=== PATIENT | female | born 1950 | race Caucasian/White ===

== ENCOUNTER → 2017-01-01 | Outpatient (CLI) | payer MEDICARE ==
[2017-01-01 09:44] LABS: Blood Urea Nitrogen 14 mg/dL (7-17); Non-African American GFR(MDRD) >60 (>60 ml/min/1.73 sqM)
--- NOTE | 2017-01-01 12:38 | CT ---
EXAMINATION TYPE: CT ChestAbdPelvis w con DATE OF EXAM: 01/01/2017 11:10 AM COMPARISON: NONE HISTORY: Breast cancer CT DLP: 854.5 mGycm CONTRAST: CT scan of the chest, abdomen and pelvis is performed with Oral Contrast and with IV Contrast, patien t injected with 100 mL of Omnipaque 300. CT Chest: LUNGS: Small left-sided pleural effusion with maximal AP measurement of 1.6 cm. Pleural-based nodular ity suggestive measuring up to 7.9 mm. The remainder of the lungs are well aerated. No evidence for f ocal consolidation. MEDIASTINUM: Thoracic aorta is of normal caliber. The heart is not enlarged. No evidence for media stinal mass or adenopathy. HILAR STRUCTURES: No evidence for mass. No hilar adenopathy is appreciated. OTHER: Large left-sided breast mass measuring an estimated 8.1 x 3.6 x 4.6 cm. There is invasion into the chest wall and apparent invasion into the sternum. Sclerosis of left ribs 3 4 and 5. There is le ft axillary adenopathy measuring at least 3.1 x 2.9 cm. There is also right axillary adenopathy with the lymph node mass measuring 3.2 x 3[address] ABDOMEN AND PELVIS FINDINGS: LIVER/GB: Hypoattenuating mass posterior segment right hepatic lobe measures 2.9 cm. Additional perip heral lesion in the anterior segment right hepatic lobe measuring 1.3 cm. Both lesions are suspicious for metastatic disease. 2 additional lesions within the dome of the liver are thought to reflect a s imple hepatic cysts with Hounsfield unit measurement of less than 20. PANCREAS: No inflammation. No distinct mass. SPLEEN: No splenic enlargement. No lesion seen. 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 ADRENALS: No nodule. No thickening. KIDNEYS/BLADDER: Renal cystic changes bilaterally. Multiple bilateral nonobstructing calculi measurin g up to 9 mm lower pole left kidney. BOWEL: Normal appendix. Normal bowel caliber. No inflammation. GENITAL ORGANS: No gross abnormality. LYMPH NODES: No greater than 1cm abdominal or pelvic lymph nodes are appreciated. AORTA: No significant abnormality. OSSEOUS STRUCTURES: Abnormal sclerosis involving L3, L1, T8, C6, sternum and sternal manubrium, left scapular coracoid process right inferior pubis and possibly right iliac wing. OTHER: No significant additional abnormality is seen. IMPRESSION: 1. Large left breast mass with the chest wall invasion and extension into the sternal body. 2. Bilateral axillary adenopathy. 3. Metastatic disease to the liver. 4. Osseous metastases as discussed. 3. Left-sided pleural effusion with the vague nodular pleural studding may reflect additional metasta tic disease.
--- NOTE | 2017-01-01 15:11 | NM ---
EXAMINATION TYPE: NM bone scan whole body DATE OF EXAM: 01/01/2017 2:34 PM COMPARISON: Correlation CT same day HISTORY: 66 year-old female history of breast cancer Technique: Delayed whole-body scanning in the anterior and posterior projection was performed followi ng the injection of 27.5 mCi Tc 99m MDP. Images acquired 4 hours post injection. FINDINGS: There is abnormal increased radiotracer activity involving the upper and lower sternum, multiple ante rior left mid ribs, in anterior right mid rib, at the left shoulder, involving multiple vertebra with in the upper to mid thoracic spine and within the upper to mid lumbar spine, the posterior mid sacrum , and inferior right pubic ramus. IMPRESSION: Findings compatible with osseous metastatic disease involving left greater than right anterior ribs, upper and lower sternum, left shoulder, multiple thoracic and lumbar vertebra, the mid posterior sacr um, and right inferior pubic ramus.
== END | disposition home or self-care (01) ==
LOC: RADNMMAIN 09:04
PROVIDERS: ATTEND Internal Medicine Hematology & Oncology
DX: C50.919 Malignant neoplasm of unspecified site of unspecified female breast (principal); C78.7 Secondary malignant neoplasm of liver and intrahepatic bile duct; C79.51 Secondary malignant neoplasm of bone; J90 Pleural effusion, not elsewhere classified; R59.0 Localized enlarged lymph nodes
CPT/HCPCS: 82565; 84520; 71260; 74177; 36415; 78306; A9503; Q9967

== ENCOUNTER 2017-01-09 08:54 | Day surgery (SDC) | payer MEDICARE ==
[2017-01-09 09:22] VITALS: RESP 14; TEMP 97.6
[2017-01-09 10:37] VITALS: BP 140/82; PULSE 80
--- NOTE | 2017-01-09 11:56 | US ---
ULTRASOUND GUIDED CORE BIOPSY RIGHT AXILLA MASS CLINICAL HISTORY: Breast cancer and large right axill a mass FINDINGS: The procedure was explained to the patient. The risks, complications, benefits and alternatives were discussed and any questions were answered. Informed consent was obtained. Patient was placed supin e on the ultrasound table and prepped and draped in the usual sterile fashion. Utilizing a 18 gauge needle, 2 core samples were made into the right axilla mass. Patient was stable throughout the procedure. Pathology is pending. All elements of maximal barrier technique were utilized. IMPRESSION: 1. Successful ultrasound guided core biopsy right axilla mass.
--- NOTE | 2017-01-12 07:34 | CDI ---
Ms Diaz was seen on 01/09 for biopsy of the R axillary lymph node. Pathology report is now available and diagnosis is as follows: Lymph node, right axilla, core biopsy: dense fibrous stroma with invasive carcinoma, consistent with breast primary. According to coding guidelines, the term "consistent with" is a term that is considered a probable or suspected condition in which we are required to get a confirmation from the physician regarding the correct diagnosis. Please clarify for reporting purposes: *invasive carcinoma, metastasis to lymph node from breast primary *invasive carcinoma, unknown primary *other (please specify) Please clarify your answer in an addendum to the procedure note or a discharge summary. Thank you for your time. LILLIANA
--- NOTE | 2017-02-14 06:59 | CDI ---
Ms Diaz was seen on 01/09 for biopsy of the R axillary lymph node. Pathology report is now available and diagnosis is as follows: Lymph node, right axilla, core biopsy: dense fibrous stroma with invasive carcinoma, consistent with breast primary. According to coding guidelines, the term "consistent with" is a term that is considered a probable or suspected condition in which we are required to get a confirmation from the physician regarding the correct diagnosis. Please clarify for reporting purposes: *invasive carcinoma, metastasis to lymph node from breast primary *invasive carcinoma, unknown primary *other (please specify) Please clarify your answer in an addendum to the procedure note or a discharge summary. If you have any questions about this query, you may contact Dental Aide, Opal Ritter at between 8am and 6pm Sunday-Sunday Thank you for your time. MIKE Huerta
--- NOTE | 2017-02-21 06:51 | CDI ---
Ms Diaz was seen on 01/09 for biopsy of the R axillary lymph node. Pathology report is now available and diagnosis is as follows: Lymph node, right axilla, core biopsy: dense fibrous stroma with invasive carcinoma, consistent with breast primary. According to coding guidelines, the term "consistent with" is a term that is considered a probable or suspected condition in which we are required to get a confirmation from the physician regarding the correct diagnosis. Please clarify for reporting purposes: *invasive carcinoma, metastasis to lymph node from breast primary *invasive carcinoma, unknown primary *other (please specify) Please clarify your answer in an addendum to the procedure note. Thank you for your time. LILLIANA
--- NOTE | 2017-03-21 10:44 | CDI ---
Ms Diaz was seen on 01/09 for biopsy of the R axillary lymph node. Pathology report is now available and diagnosis is as follows: Lymph node, right axilla, core biopsy: dense fibrous stroma with invasive carcinoma, consistent with breast primary. According to coding guidelines, the term "consistent with" is a term that is considered a probable or suspected condition in which we are required to get a confirmation from the physician regarding the correct diagnosis. Please clarify for reporting purposes: *invasive carcinoma, metastasis to lymph node from breast primary *invasive carcinoma, unknown primary *other (please specify) Please clarify your answer in an addendum to the procedure note. Thank you for your time. MIKE Huerta If you have any questions about this query, you may contact the technical project manager, Opal Durant, at between 8am and 6pm Sunday-Sunday. LILLIANA
--- NOTE | 2017-03-21 10:46 | CDI ---
Ms Diaz was seen on 01/09 for biopsy of the R axillary lymph node. Pathology report is now available and diagnosis is as follows: Lymph node, right axilla, core biopsy: dense fibrous stroma with invasive carcinoma, consistent with breast primary. According to coding guidelines, the term "consistent with" is a term that is considered a probable or suspected condition in which we are required to get a confirmation from the physician regarding the correct diagnosis. Please clarify for reporting purposes: *invasive carcinoma, metastasis to lymph node from breast primary *invasive carcinoma, unknown primary *other (please specify) Please clarify your answer in an addendum to the procedure note. Thank you for your time. MIKE Huerta If you have any questions about this query, you may contact the combat control manager, Opal Durant, at between 8am and 6pm Sunday-Sunday. LILLIANA
== END 2017-01-09 10:43 | disposition home or self-care (01) ==
LOC: RADPROMAIN 08:54
PROVIDERS: ATTEND Internal Medicine Hematology & Oncology
DX: C77.3 Secondary and unspecified malignant neoplasm of axilla and upper limb lymph nodes (principal); C80.1 Malignant (primary) neoplasm, unspecified
CPT/HCPCS: 38505; 76942; 88305; 88341; 88342

== ENCOUNTER → 2017-08-01 | Outpatient (CLI) | payer MEDICARE ==
[2017-08-01 09:10] LABS: Blood Urea Nitrogen 18 mg/dL (7-17); Non-African American GFR(MDRD) 56 (>60 ml/min/1.73 sqM)
--- NOTE | 2017-08-01 10:34 | CT ---
EXAMINATION TYPE: CT ChestAbdPelvis w con DATE OF EXAM: 08/01/2017 COMPARISON: 01/01/2017 HISTORY: breast CA with mets CT DLP: 889.6 mGycm CONTRAST: CT scan of the chest, abdomen and pelvis is performed with Oral Contrast and with IV Contrast, patien t injected with 100 mL of Omnipaque 300. CT Chest: LUNGS: Resolution of left-sided pleural effusion. Pleural-based nodularity has also resolved. No susp icious pulmonary nodules are evident at this point in time. Hyperinflation compatible with COPD. MEDIASTINUM: Thoracic aorta is of normal caliber. The heart is not enlarged. No evidence for media stinal mass or adenopathy. HILAR STRUCTURES: No evidence for mass. No hilar adenopathy is appreciated. OTHER: Left sided mastectomy changes. Large chest wall mass is markedly improved however there remain s soft tissue at the same site measuring approximately 6.8 cm x 2.2 cm versus 8.1 x 3.6 x 4.6 cm. Adj acent ribs and sternum appear to be unchanged. Right axillary adenopathy is much improved and measure s 1.7 cm in maximal dimension versus 3.2 cm previously. Left axillary adenopathy is also improved wit h lymph node noted measuring up to 1.3 cm persists 3.[address] ABDOMEN AND PELVIS FINDINGS: LIVER/GB: No calcified gallstones. Stable simple cyst within the dome of the liver. Additional prob able metastatic lesion posterior segment right hepatic lobe persists although is smaller in size and measures 1.8 cm versus 2.9 cm previously. A second lesion within the periphery of the anterior segmen t right hepatic lobe is also smaller in size and measures 8 mm cyst is 1.3 cm. No new hepatic lesions are identified at this time. PANCREAS: No inflammation. No distinct mass. SPLEEN: No splenic enlargement. No lesion seen. ADRENALS: No nodule. No thickening. KIDNEYS/BLADDER: No hydronephrosis. Stable nephrolithiasis. Stable cyst midpole right kidney. BOWEL: Normal appendix. Normal bowel caliber. No inflammation. GENITAL ORGANS: No gross abnormality. LYMPH NODES: No greater than 1cm abdominal or pelvic lymph nodes are appreciated. AORTA: No significant abnormality. OSSEOUS STRUCTURES: Persistent sclerotic bony metastases with new lesions seen within the upper thora cic spine as well as sacrum. OTHER: No significant additional abnormality is seen. IMPRESSION: 1. Resolution of the left-sided pleural effusion and pleural-based nodularity. 2 left-sided mastectomy change with resection of invasive chest wall mass. As noted there remains a s oft tissue at the site of the large lobulated mass which could be postsurgical in nature although res idual tumor is not excluded. 3. Persistent but improving axillary adenopathy. 4. Persistent but improving hepatic metastatic lesions. No new lesions are identified. 5. Persistent blastic metastases with new lesions identified within the upper thoracic spine as well as the sacrum.
== END | disposition home or self-care (01) ==
LOC: RADCTMAIN 08:08
PROVIDERS: ATTEND Internal Medicine Hematology & Oncology
DX: C50.812 Malignant neoplasm of overlapping sites of left female breast (principal); C78.7 Secondary malignant neoplasm of liver and intrahepatic bile duct; C79.51 Secondary malignant neoplasm of bone; R59.0 Localized enlarged lymph nodes; Z90.12 Acquired absence of left breast and nipple
CPT/HCPCS: 82565; 84520; 71260; 74177; 36415; Q9967

== ENCOUNTER → 2018-01-07 | Outpatient (CLI) | payer MEDICARE ==
[2018-01-07 11:44] LABS: Blood Urea Nitrogen 16 mg/dL (7-17)
--- NOTE | 2018-01-07 17:05 | CT ---
EXAMINATION TYPE: CT ChestAbdPelvis w con DATE OF EXAM: 01/07/2018 INDICATION: Breast CA follow up COMPARISON: 08/01/2017 CT DLP: 1566 mGycm CONTRAST: Performed with Oral Contrast and with IV Contrast, patient injected with 100 mL of Omnipaque 300. TECHNIQUE: Axial images at 5 mm thick sections. Reconstructed images in the coronal plane. Delayed images through the kidneys. FINDINGS: CT CHEST: There is a left mastectomy. Soft tissue density lies along the anterior chest wall at the m astectomy site. Present previously and is slightly lefts less depth but greater in length currently m easuring 7.7 x 1.7 cm versus the previous 6.8 x 2.2 cm. Portion of the thyroid visualized is normal. No suspicious lung nodules or focal infiltrates are present. No enlarged mediastinal or hilar adenopathy is evident. The ascending aorta diameter at the level of the main pulmonary artery is 2.8 cm. The main pulmonary artery diameter at the bifurcation is 2.[address] ABDOMEN: Liver: There is a 1.8 cm cyst like area superior right lobe liver. Smaller 0.7 cm cyst like area is a djacent. There is an additional cyst like area inferior right lobe liver measuring 1.5 cm. These were present previously and are smaller currently. This could be related to resolving metastases within t he liver. Spleen: Normal Pancreas: Normal Adrenal glands: The adrenal glands are normal. Gallbladder: Normal Kidneys: No masses are evident. No hydronephrosis is present. There is a 1.5 cm cyst on the lateral right kidney measuring 12 Hounsfield units. There are multiple scattered calcifications at the infer ior poles of the bilateral kidneys. The largest on the right measures 0.8 cm. There is a punctate non obstructing renal stone at the superior pole right kidney measuring 0.2 cm. Additional nonobstructing renal stones or the inferior pole right kidney the largest measuring 0.3 cm. Delayed images were ob tained through the kidneys, which remain unremarkable. Aorta: Vascular calcification is within the aorta. Inferior vena cava: Normal. CT PELVIS: Loops of bowel within the abdomen and pelvis are normal. Fecal debris is within the colon. Loops of bowel distended with oral contrast are normal. There are loops of bowel lacking oral contrast limi ting their evaluation. Appendix: Normal as visualized. Urinary bladder: Normal. Genitourinary structures: Uterus and adnexal regions are normal. No free fluid is within the pelvis. Osseous structures: Sclerotic lesions are within the S2-3 level, L3, L1 T7-T8 T5, T3 levels suspiciou s for sclerotic metastases. Small sclerotic lesion may also be in the superior posterior endplate L4. Sclerotic metastases within the sternum are also likely present. Sclerotic metastasis within the lef t scapula is present. Facet hypertrophy is in the lower lumbar spine. IMPRESSIONS: 1. Sclerotic metastases present. 2. Diminished liver lesion size which maintain low density.
== END | disposition home or self-care (01) ==
LOC: RADCTMAIN 11:02
PROVIDERS: ATTEND Internal Medicine Hematology & Oncology
DX: C50.812 Malignant neoplasm of overlapping sites of left female breast (principal); C79.51 Secondary malignant neoplasm of bone; K76.9 Liver disease, unspecified
CPT/HCPCS: 82565; 84520; 71260; 74177; 36415; Q9967

== ENCOUNTER → 2018-08-01 | Outpatient (CLI) | payer MEDICARE ==
--- NOTE | 2018-08-01 12:03 | CT ---
EXAMINATION TYPE: CT ChestAbdPelvis w con DATE OF EXAM: 08/01/2018 COMPARISON: Thyroid 2618 HISTORY: Breast Cancer CT DLP: 784 mGycm CONTRAST: CT scan of the chest, abdomen and pelvis is performed with Oral Contrast and with IV Contrast, patien t injected with 100 mL of Isovue 300. CT Chest: LUNGS: The lungs are clear and free of infiltrate or atelectasis. No pulmonary nodule or mass is det ected. No pleural effusion or CT evidence of interstitial lung disease. MEDIASTINUM: Thoracic aorta is of normal caliber. The heart is not enlarged. No evidence for media stinal mass or adenopathy. HILAR STRUCTURES: No evidence for mass. No hilar adenopathy is appreciated. OTHER: Enlarging mass right breast measures 3.8 cm versus 1.8 cm previously. Suspect malignancy. Mast ectomy changes left breast. CONTRAST CT ABDOMEN AND PELVIS FINDINGS: LIVER/GB: No calcified gallstones. Stable left cystlike lesions within the liver stable with regard s to overall size and number. One of the lesions anterior segment right hepatic lobe image 52 measure s 1.5 cm and appears to be less cystic and is also unchanged from prior study. PANCREAS: No inflammation. No distinct mass. SPLEEN: No splenic enlargement. No lesion seen. ADRENALS: No nodule. No thickening. KIDNEYS/BLADDER: No hydronephrosis. Renal cystic changes persist as well as bilateral nephrolithiasi s. BOWEL: Normal appendix. Normal bowel caliber. No inflammation. GENITAL ORGANS: No gross abnormality. LYMPH NODES: No greater than 1cm abdominal or pelvic lymph nodes are appreciated. AORTA: No significant abnormality. OSSEOUS STRUCTURES: Sclerotic metastatic disease is unchanged. OTHER: No significant additional abnormality is seen. IMPRESSION: 1. Enlarging right breast mass felt to reflect malignancy until proven otherwise. 2. Hepatic lesions remain stable with regard to size shape and number. Metastatic disease is not excl uded. 3. Sclerotic metastatic disease to the osseous structures remain stable.
== END ==
LOC: RADCTMAIN 09:40
PROVIDERS: ATTEND Internal Medicine Hematology & Oncology
DX: C50.812 Malignant neoplasm of overlapping sites of left female breast (principal); C79.51 Secondary malignant neoplasm of bone; K76.9 Liver disease, unspecified
CPT/HCPCS: 71260; 74177; Q9967

== ENCOUNTER → 2018-11-21 | Outpatient (CLI) | payer MEDICARE ==
--- NOTE | 2018-11-21 11:34 | CT ---
EXAMINATION TYPE: CT abdomen pelvis w con DATE OF EXAM: 11/21/2018 COMPARISON: 08/01/2018 and 01/07/2018 HISTORY: 68-year-old female history of Breast CA TECHNIQUE: Contiguous axial scanning of the abdomen and pelvis following administration of 100 ml Iso christine 300 IV contrast. Delayed images through the kidneys and coronal/sagittal reconstructions perform ed. CT DLP: 1433 mGycm Automated exposure control for dose reduction was used. FINDINGS: Heart normal size without pericardial effusion. Lung bases clear without pleural effusion. Redemonstrated lobular 2.8 cm cyst right hepatic dome. Hypodense lesion inferior right liver lobe wit h adjacent capsular retraction suggesting volume loss measures 1.4 cm versus 1.6 cm on prior exam. Th is measured in the AP dimension. No new liver lesion seen. Portal venous system is patent. No biliary ductal dilatation. Gallbladder, adrenal glands, spleen, and pancreas appear within normal limits. Numerous renal cysts remain unchanged with the bilobed cyst on the right measuring up to 1.9 cm. A c ouple punctate 2 mm nonobstructive calculi in the right kidney. Nonobstructive calculi in the left ki dney, approximately 4 measuring up to 7 mm are unchanged. Eggshell calcification at the splenic hilum measures 9 mm and could represent a small splenic artery aneurysm. Mild central ikran mesentery with associated nonenlarged mesenteric lymph nodes are unchanged, likely chronic postinflammatory etiology. No dilated small bowel, free fluid, or free air. Normal appendix. Moderate stool in the left side of the colon. No pericolonic inflammatory change. Oral contrast progr essed to the splenic flexure. Bladder is urine distended. Uterus and ovaries are visualized. Pelvic phleboliths. No abnormal fluid collection in the pelvis or pelvic lymphadenopathy. Bones: Multifocal sclerotic osseous metastases are redemonstrated without interval change. IMPRESSION: 1. HYPODENSE LIVER LESION INFERIOR RIGHT LIVER LOBE MEASURES 1.4 CM VERSUS 1.6 CM, PREVIOUSLY. THERE IS SIMILAR ADJACENT CAPSULAR RETRACTION SUGGESTING VOLUME LOSS FROM POSTTREATMENT EFFECT. NO NEW LIVE R LESION OR NEW METASTATIC DISEASE EVIDENT IN THE ABDOMEN OR PELVIS. 2. STABLE SCLEROTIC OSSEOUS METASTATIC LESIONS. 3. NONOBSTRUCTIVE RENAL CALCULI MEASURING UP TO 7 MM ON THE LEFT.
== END | disposition home or self-care (01) ==
LOC: RADCTMAIN 07:57
PROVIDERS: ATTEND Internal Medicine Hematology & Oncology
DX: N20.0 Calculus of kidney (principal); C79.51 Secondary malignant neoplasm of bone; R94.5 Abnormal results of liver function studies; C50.812 Malignant neoplasm of overlapping sites of left female breast
CPT/HCPCS: 82565; 84520; 74177; Q9967

== ENCOUNTER → 2019-07-30 | Outpatient (CLI) | payer MEDICARE ==
--- NOTE | 2019-07-30 17:06 | CT ---
EXAMINATION TYPE: CT ChestAbdPelvis w con DATE OF EXAM: 07/30/2019 COMPARISON: CT chest abdomen and pelvis August 01, 2018 and older CTs. HISTORY: Breast CA CT DLP: 794.30 mGycm. Automated Exposure Control for Dose Reduction was Utilized. CONTRAST: CT scan of the thorax, abdomen and pelvis is performed with oral and with IV Contrast, patient inject ed with 100 mL of Isovue 300. FINDINGS: LUNGS: There are new scattered bilateral pulmonary nodules with several small nodules seen in the lef t lung apex abutting the pleura. There is a 1.2 cm left lower lobe pulmonary nodule axial image 28. T here is a larger 2.0 x 1.7 cm subpleural nodule posterior left lower lobe\34. Scattered smaller right -sided nodules are present. Largest measures 1.5 x 1.1 cm anterior right midlung image 22 MEDIASTINUM: There are new suspicious thoracic lymph nodes. For reference there is left AP window lym ph node measuring 1.8 x 1.2 cm axial image 22. For reference there is 1.6 x 1.5 cm prevascular lymph node axial image 22. No Cardiomegaly or pericardial effusion is seen. 4 vessel origin from aortic ar ch is seen which is normal variant. OTHER: Mastectomy changes left breast with thickening and calcification axial image 34 redemonstrated . Persistent skin thickening with rim enhancing right breast mass measuring 2.2 x 2.0 cm image 31 dimin ished in size from prior. LIVER/GB: Their is 1.5 cm low dense lesion centrally in the liver presumed simple thin-walled cyst re demonstrated. Smaller hypodense lesion posterior hepatic lobe axial image 49 is stable. Smaller subce ntimeter lesion anteriorly axial image 50 is noted to small to further characterize PANCREAS: No significant abnormality is seen. SPLEEN: Stable distal splenic artery calcified aneurysm axial image 48. ADRENALS: No significant abnormality is seen. KIDNEYS: Persistent mid to lower pole left renal calculi and smaller scattered right-sided renal calc joanna. Symmetric cortical medullary uptake and excretion with some simple appearing thin-walled cyst up per to midpole level of both kidneys. No hydronephrosis is seen bilaterally. BOWEL: The oral contrast reaches global proximal transverse colon. No suspicious small or large bowel dilatation. GENITAL ORGANS: Anteverted uterus projects to right of midline. LYMPH NODES: No greater than 1cm abdominal or pelvic lymph nodes are appreciated. OSSEOUS STRUCTURES: Redemonstration of scattered sclerotic metastatic lesions most prominent left L3, L1 vertebra, T8 vertebra, and T5 levels without significant interval change. Additional smaller scat tered sclerotic metastatic foci are redemonstrated. There is involvement of the right superior and in ferior pelvic rami again seen. Upper sacral involvement is noted. There is sternal disease including left manubrium redemonstrated. OTHER: No significant additional abnormality is seen. IMPRESSION: Overall mixed response of patient is still undergoing treatment. There is diminished size of right breast mass or neoplasm but new thoracic metastatic disease as detailed above. Diffuse osse ous metastatic disease is felt stable.
== END | disposition home or self-care (01) ==
LOC: RADCTMAIN 12:28
PROVIDERS: ATTEND Internal Medicine Hematology & Oncology
DX: C79.51 Secondary malignant neoplasm of bone (principal); C50.812 Malignant neoplasm of overlapping sites of left female breast
CPT/HCPCS: 71260; 74177; Q9967 ×2; 82565; 84520

== ENCOUNTER 2019-08-21 09:00 | Day surgery (SDC) | payer MEDICARE ==
[2019-08-21 09:31] VITALS: RESP 16; TEMP 97.8
[2019-08-21 09:42] LABS: Platelet Count 266 k/uL (150-450)
[2019-08-21 09:47] LABS: Prothrombin Time 10.3 sec (9.0-12.0)
--- NOTE | 2019-08-21 11:05 | XR ---
EXAMINATION TYPE: XR chest 1V portable DATE OF EXAM: 08/21/2019 Comparison: None Clinical History: 69-year-old female status post left lung biopsy. Findings: Heart normal size. Levoconvex scoliosis. Aorta and pulmonary vasculature within normal limits. Known left lower lung mass measuring 3.2 cm and scattered pulmonary nodules on both sides. There is a small 2.7 cm left apical pneumothorax estimated at 10%. No consolidation or pleural effusion. Impression: 1. Small 2.7 cm left apical pneumothorax estimated at 10%. 2. Known left lower lung 3.2 cm mass and bilateral pulmonary nodules.
--- NOTE | 2019-08-21 12:01 | CT ---
EXAMINATION TYPE: CT biopsy lung LT DATE OF EXAM: 08/21/2019 COMPARISON: 07/30/2019 HISTORY: Left lung mass requested for biopsy CT DLP: 1273 mGycm The procedure is discussed with the patient, the risks, complications, benefits and alternatives, wer e discussed and any questions were answered. Informed consent was obtained. The patient is placed p caleb on the CT table, prepped and draped in the usual sterile fashion. Utilizing a 18-gauge core biopsy needle access into the left lower lobe mass was achieved with a sing le pass performed. There is a tiny less than 5% left-sided pneumothorax and the procedure was discont inued. Pathology pending. All elements of maximal barrier and sterile technique were utilized. The patient remained stable throughout the procedure with no immediate postprocedural complication. IMPRESSION: 1. Successful CT guided core biopsy of a lower lobe lung mass
[2019-08-21 13:28] VITALS: BP 123/76; PULSE 66
--- NOTE | 2019-08-21 13:30 | XR ---
EXAMINATION TYPE: XR chest 1V portable DATE OF EXAM: 08/21/2019 COMPARISON: Rest x-ray earlier today. HISTORY: Left-sided lung biopsy. TECHNIQUE: Single frontal view of the chest is obtained. FINDINGS: There is some apical pleural thickening on the left. There are scattered bilateral pulmona ry nodules and background chronic emphysematous change. No pneumothorax is evident. The cardiac silh ouette size is enlarged on current study. Slight underlying scoliotic curvature. IMPRESSION: No pneumothorax noted after left lung biopsy on current study.
== END 2019-08-21 13:35 | disposition home or self-care (01) ==
LOC: RADPROMAIN 09:00
PROVIDERS: ATTEND Internal Medicine Hematology & Oncology
DX: C34.32 Malignant neoplasm of lower lobe, left bronchus or lung (principal); Z17.1 Estrogen receptor negative status [ER-]
CPT/HCPCS: 36415; 71045; 77012; 85049; 85610; 88305; 88341; 88342

== ENCOUNTER → 2019-12-09 | Outpatient (CLI) | payer MEDICARE ==
[2019-12-09 14:28] LABS: African American GFR (CKD) >90 (>60 ml/min/1.73 sqM); Blood Urea Nitrogen 23 mg/dL (7-17); Non-African American GFR(CKD) 85 (>60 ml/min/1.73 sqM)
--- NOTE | 2019-12-09 16:00 | CT ---
EXAMINATION TYPE: CT ChestAbdPelvis w con DATE OF EXAM: 12/09/2019 COMPARISON: 07/30/2019 HISTORY: Breast CA F/U CT DLP: 1187 mGycm CONTRAST: CT scan of the chest, abdomen and pelvis is performed with Oral Contrast and with IV Contrast, patien t injected with 100 mL of Isovue 300. CT Chest: LUNGS: Multiple pleural-based nodules are redemonstrated. The largest left lower lobe 0.7 cm maximal dimension versus 1.9 cm previously. Stable left upper lobe pulmonary nodule measuring 1.1 cm versus 1 .1 cm previously. Right upper lobe pulmonary nodule is smaller in size and measures 1 cm versus 1.5 c m previously. No new pulmonary nodules identified with absolute certainty. MEDIASTINUM: Thoracic aorta is of normal caliber. The heart is not enlarged. Increasing AP window m ediastinal adenopathy. AP window lymph node measures 1.9 cm versus 1.6 cm previously. Left-sided prec arinal lymph node measures 2 cm versus 1.5 cm. Left tracheobronchial lymph node measures 1.5 cm versu s 1.3 cm. Subcarinal adenopathy measures 1.3 cm versus not present previously. HILAR STRUCTURES: No evidence for mass. No hilar adenopathy is appreciated. OTHER: Enlarging right breast mass measuring 2.8 x 2.5 cm versus a 2.2 x [address] ABDOMEN AND PELVIS FINDINGS: LIVER/GB: No calcified gallstones. No solid space occupying hepatic lesion. Hepatic cystic changes noted. Biliary tree is of normal caliber. PANCREAS: No inflammation. No distinct mass. SPLEEN: No splenic enlargement. No lesion seen. ADRENALS: No nodule. No thickening. KIDNEYS/BLADDER: No hydronephrosis. No nephrolithiasis. Renal cystic changes identified. BOWEL: Nor mal appendix. Normal bowel caliber. No inflammation. GENITAL ORGANS: No gross abnormality. LYMPH NODES: No greater than 1cm abdominal or pelvic lymph nodes are appreciated. AORTA: No significant abnormality. OSSEOUS STRUCTURES: Sclerotic osseous metastases are redemonstrated throughout the visualized cervica l, thoracic and lumbar spine and sacrum and pelvis as well as the sternum. OTHER: No significant additional abnormality is seen. IMPRESSION: 1. Enlarging right breast mass. 2. Multiple pulmonary nodules without significant increase in overall number. Several of the nodules are smaller in size. 3. Increasing mediastinal adenopathy. 4. Stable bony metastases.
== END | disposition home or self-care (01) ==
LOC: RADCTMAIN 13:36
PROVIDERS: ATTEND Internal Medicine Hematology & Oncology
DX: Z03.89 Encounter for observation for other suspected diseases and conditions ruled out (principal); C79.51 Secondary malignant neoplasm of bone; C50.911 Malignant neoplasm of unspecified site of right female breast; R91.8 Other nonspecific abnormal finding of lung field; R59.0 Localized enlarged lymph nodes
CPT/HCPCS: 82565; 84520; 71260; 74177; 36415; Q9967

== ENCOUNTER → 2020-03-09 | Outpatient (CLI) | payer MEDICARE ==
[2020-03-09 15:45] LABS: ALT 17 U/L (4-34); AST 30 U/L (14-36); African American GFR (CKD) >90 (>60 ml/min/1.73 sqM); Albumin 3.9 g/dL (3.5-5.0); Alkaline Phosphatase 122 U/L (38-126); Anion Gap 5 mmol/L; Blood Urea Nitrogen 14 mg/dL (7-17); Calcium 8.9 mg/dL (8.4-10.2); Carbon Dioxide 24 mmol/L (22-30); Chloride 108 mmol/L (98-107); Glucose 117 mg/dL (74-99); Non-African American GFR(CKD) 85 (>60 ml/min/1.73 sqM); Sodium 137 mmol/L (137-145); Total Bilirubin 0.3 mg/dL (0.2-1.3); Total Protein 6.8 g/dL (6.3-8.2)
--- NOTE | 2020-03-09 18:51 | CT ---
EXAMINATION TYPE: CT ChestAbdPelvis w con DATE OF EXAM: 03/09/2020 COMPARISON: CT chest abdomen and pelvis December 09, 2019 and older studies. HISTORY: Follow up breast cancer CT DLP: 597.9 mGycm. Automated Exposure Control for Dose Reduction was Utilized. CONTRAST: CT scan of the thorax, abdomen and pelvis is performed with oral and with IV Contrast, patient inject ed with 100 mL of Isovue 300. FINDINGS: LUNGS: New tiny right and small left pleural effusions. Redemonstration of scattered pulmonary nodul es and masses consistent with Known metastatic disease. Progression in size and number of lesions not ed. For reference posterior left lower lobe lesion measures 3.0 x 2.1 cm current study image 38 versu s 2.0 x 1.3 cm most recent prior study axial image 32. For reference anterior left upper lobe periphe ral mass measures 2.0 x 1.2 cm axial image 11 versus 1.3 x 1.1 cm prior study axial image 7. MEDIASTINUM: There are persistent abnormal thoracic lymph nodes. Increased in size and number from mo st recent CT noted. For reference right hilar adenopathy measures 2.3 x 2.2 cm current study axial im age 25 versus 8 mm rounded lesion prior study axial image 20. Some mass effect with narrowing on the left pulmonary artery is more prominent on current study. Tiny pericardial effusion is stable or slig htly more prominent. No cardiomegaly. OTHER: Further progression in right-sided breast cancer with rim hyperdense 4.2 x 3.9 cm mass axial i mage 31 increased in size from most recent prior. Diffuse skin thickening and subcutaneous fat strand ing redemonstrated suggesting inflammatory cancer. New satellite 7 mm rim hyperdense or enhancing nod ule anterior to the mass noted axial image 31. Left breast surgically absent with dystrophic calcific ations. Right axillary irregular soft tissue extending to the skin surface favoring scarring axial im age 22 unchanged from several prior studies. LIVER/GB: Stable 2.4 cm thin-walled cyst right hepatic dome axial image 45. PANCREAS: No significant abnormality is seen. 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 ADRENALS: No significant abnormality is seen. KIDNEYS: Simple appearing thin-walled cyst redemonstrated scattered throughout both kidneys. Redemons tration of bilateral scattered renal calculi with largest calculi seen in the lower pole level left k idney coronal image 50. No significant change from most recent prior study. BOWEL: No significant abnormality is seen. GENITAL ORGANS: Anteverted uterus projecting to right of midline redemonstrated. LYMPH NODES: No greater than 1cm abdominal or pelvic lymph nodes are appreciated. OSSEOUS STRUCTURES: Diffuse sclerotic osseous metastatic disease redemonstrated without significant i nterval change. Several lesions in the thoracolumbar spine redemonstrated. Sclerotic lesion left sacr um coronal image 61 redemonstrated. Lesion right pubic symphysis and ischial tuberosity again seen. U nderlying scoliotic curvature in the thoracic spine redemonstrated. Sternal metastatic disease again seen. No significant interval change. OTHER: No significant additional abnormality is seen. IMPRESSION: Progression of metastatic neoplasm with enlarging right breast mass and new anterior sate llite mass. Enlarging and more numerous pulmonary metastatic lesions along with enlarging and more n umerous thoracic adenopathy. Stable osseous metastatic disease. New small left pleural effusion noted .
== END | disposition home or self-care (01) ==
LOC: RADCTMAIN 15:18
PROVIDERS: ATTEND Internal Medicine Hematology & Oncology
DX: N63.10 Unspecified lump in the right breast, unspecified quadrant (principal); C78.00 Secondary malignant neoplasm of unspecified lung; R59.9 Enlarged lymph nodes, unspecified; J90 Pleural effusion, not elsewhere classified; C79.51 Secondary malignant neoplasm of bone; D64.9 Anemia, unspecified; Z17.0 Estrogen receptor positive status [ER+]
CPT/HCPCS: 80053; 71260; 74177; Q9967

== ENCOUNTER → 2020-04-14 | Outpatient (CLI) | payer MEDICARE ==
--- NOTE | 2020-04-14 18:29 | MR ---
"EXAMINATION TYPE: MR brain/cspine wo/w DATE OF EXAM: 04/14/2020 COMPARISON: NONE HISTORY: Weakness and loss of use of Right Hand and Arm. Hx of Breast and Lung Ca TECHNIQUE: Multiplanar, multisequence images of the cervical spine, brain, and brainstem are all performed witho ut and with IV contrast, utilizing 6 mL intravenous Gadavist . FINDINGS: BRAIN: Diffusion weighted images demonstrate no evidence of a recent infarct . There is background mild rosario tricular and sulcal prominence. Midline structures demonstrate normal morphology. The craniocervica l junction appears within normal limits. Post contrast images demonstrate rim-enhancing 1.7 cm focus high left parietal region axial Image 65. Chest posterior superior to this there is 6 to 7 mm ring enhancing focus axial image 66. There are 2 punctate 1 to 3 mm enhancing foci right frontal lobe and posterior deep left frontal parietal juncti on axial image 57. There are roughly 5-10 scattered bilateral cerebellar enhancing foci up to 4 mm in size coronal image 68. There is a 8mm superior left temporal enhancing lesion axial image 39. There is vasogenic edema high left parietal region with sulcal swelling and to lesser degree some vasogenic edema surrounding the right frontal 3 mm focus. Some midline shift up to 4 mm to the right at level of septum pellucidum axial image 17 noted series 1302. Some peripheral linear meningeal enhancement i dentified without definitive suspicious nodularity to suggest meningeal involvement. The dural venous sinuses appear patent. Fluid is completely filling the right maxillary sinus with mo derate mucosal thickening in the left maxillary sinus and mild mucosal thickening bilateral ethmoid s inuses. Bilateral enophthalmos is noted. IMPRESSION: 1. 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 Some local mass effect and m idline shift noted. 2. Possible acute right maxillary sinusitis and background chronic paranasal sinus disease. C-SPINE: FINDINGS: Coronal images show levoconvex scoliosis centered in the visualized upper thoracic spine. S agittal images of the cervical spine show the craniocervical junction to appear within normal limits. The cervical and upper thoracic spinal cord is normal in caliber and signal. There is grade 1 retro listhesis of C4 on C5 and to lesser degree C5 on C6 and C6 on C7. The vertebral body heights are nor mal. Mild to moderate disc space narrowing C5-C6 level. The bone marrow signal intensity is within no rmal limits in the cervical spine. No suspicious enhancement. Lesion of low T1 and T2 signal posterio r superior T3 vertebra without enhancement could reflect calcification or sclerosis, correlate clinic ally. Axial images show the C2-C3 and C3-C4 levels to appear within normal limits. Axial images at C4-C5 level shows spondylolisthesis with broad based right paracentral disc protrusio n effacing anterior thecal sac causing some flattening of the ventral surface of spinal cord. Axial images at C5-C6 level broad-based posterior disc protrusion and uncovertebral facet degenerativ e changes along with spondylolisthesis, there is mild effacement of the anterior thecal sac and mild- to-moderate bilateral neural foraminal narrowing, left greater than right. Axial images at C6-C7 and C7-T1 levels are within normal limits. IMPRESSION: Scoliotic curvature with multilevel spondylolisthesis and degenerative change greatest at C4-C5 and C5-C6 levels as detailed above. A Yellow level critical message alert has been initiated for Naif Mccormick MD via the [employer] 36 0 | Critical Results System on 04/14/2020 6:26 PM. This message alert has been sent to Naif Mccormick MD via the preferences provided by the clinician for the receipt of Radiology Critical Findings. Mess age ID [id number]."
== END | disposition home or self-care (01) ==
LOC: RADMRIMAIN 15:59
PROVIDERS: ATTEND Internal Medicine Hematology & Oncology
DX: M47.812 Spondylosis without myelopathy or radiculopathy, cervical region (principal); M43.12 Spondylolisthesis, cervical region; C50.812 Malignant neoplasm of overlapping sites of left female breast
CPT/HCPCS: 70553; 72156; A9585

== ENCOUNTER → 2020-05-10 | Outpatient (CLI) | payer MEDICARE ==
--- NOTE | 2020-05-10 11:55 | CT ---
EXAMINATION TYPE: CT ChestAbdPelvis w con DATE OF EXAM: 05/10/2020 COMPARISON: Prior exam dated 03/09/2020 CT chest abdomen pelvis HISTORY: follow up breast and lung cancer CT DLP: 508.5 mGycm Automated exposure control for dose reduction was used. CONTRAST: CT scan of the chest, abdomen and pelvis is performed with Oral Contrast and with IV Contrast, patien t injected with 100 mL of Isovue 300. FINDINGS: Right breast mass now measures approximately 4.7 cm in AP dimension by approximately 4.1 cm in transverse dimension which is slightly increased compared to prior, smaller subareolar mass shows a similar appearance in the right breast, patient is status post left mastectomy LUNGS: The lungs are improved, previously identified pleural and parenchymal lung masses are no longe r seen, minimal residual density in the right upper lobe lesion is noted measuring only 9 mm There is no pleural effusion or pneumothorax seen. The tracheobronchial tree is patent. MEDIASTINUM: There are no greater than 1 cm hilar or mediastinal lymph nodes. No pericardial effusi on is seen. AORTA: No significant abnormality is seen. OTHER: No additional significant abnormality is seen. LIVER/GB: 1 low dense focus within the right lobe of the liver is [id number] and likely represents a cyst. Gallbladder is unremarkable. PANCREAS: No significant abnormality is seen. SPLEEN: Probable splenic artery aneurysm shows a similar appearance. ADRENALS: No significant abnormality is seen. KIDNEYS: No significant abnormality is seen. REPRODUCTIVE ORGANS: No gross abnormality seen. BOWEL: Retained fecal debris present throughout the distribution of the colon, some mild wall thicke omar at the rectosigmoid is indeterminate and may be due to lack of distention rather than colitis. FREE AIR: No Free Air visible. ASCITES: None seen. RETROPERITONEAL ADENOPATHY: No retroperitoneal adenopathy is seen. LYMPH NODES: No greater than 1 cm abdominal or pelvic lymph nodes are appreciated. URINARY BLADDER: No significant abnormality is seen. PELVIC ADENOPATHY: None visualized. OSSEOUS STRUCTURES: Sclerotic focus involving the left ninth rib and laterally shows a similar appea marine. This may be related to old fracture, sclerotic appearance of anterior ribs deep to the mastect dagoberto site on the left are again seen, less so on the right. Sclerotic lesions within the proximal left femur, right-sided inferior pubic ramus, sacrum, lumbar vertebral bodies are again seen as well as t he sternum. IMPRESSION: Near complete resolution of pleural parenchymal lesions within the lungs, right breast ma ss slightly increased in size as compared to prior. Bone metastases show similar appearance. Addition al findings above.
== END | disposition home or self-care (01) ==
LOC: RADCTMAIN 09:44
PROVIDERS: ATTEND Internal Medicine Hematology & Oncology
DX: C80.1 Malignant (primary) neoplasm, unspecified (principal); C79.51 Secondary malignant neoplasm of bone; C50.812 Malignant neoplasm of overlapping sites of left female breast
CPT/HCPCS: 71260; 74177; 36415; Q9967

== ENCOUNTER → 2020-06-29 | Outpatient (CLI) | payer MEDICARE ==
--- NOTE | 2020-06-30 06:11 | MR ---
EXAMINATION TYPE: MR brain wo/w con DATE OF EXAM: 06/29/2020 COMPARISON: HISTORY: F/u from CA treatment CONTRAST: Standard multiplanar, multisequence MRI departmental protocol utilizing 5 mL intravenous Gadavist jeniffer olinium contrast. There is mild cerebral atrophy. There is no mass effect nor midline shift. There is no sign of intrac ranial hemorrhage. Diffusion images show no evidence of cortical infarct. There is mucosal thickening in the maxillary sinuses. There are small areas of increased signal in the periventricular white mat ter around the occipital horns and frontal horns of the lateral ventricles. There is a 11 mm ring-enhancing lesion at the left parietal convexity without significant surrounding edema. Just posterior to this lesion there is a 4 mm ring-enhancing focus at the left parietal conve xity. Brainstem is intact. Cerebellum is intact. There is normal enhancement of the venous sinuses. Sella t urcica appears normal. IMPRESSION: Left parietal ring-enhancing lesions are much smaller than previous exam and there is significant fe aring of the surrounding edema. The previous exam shows multiple small enhancing foci in the cerebell um and in the right frontal lobe that are not demonstrated on today's exam. This is consistent with f avorable treatment response. No evidence of any new lesion compared to old exam.
== END | disposition home or self-care (01) ==
LOC: RADMRIMAIN 14:03
PROVIDERS: ATTEND Radiology Radiation Oncology
DX: C79.31 Secondary malignant neoplasm of brain (principal); C79.51 Secondary malignant neoplasm of bone; C50.412 Malignant neoplasm of upper-outer quadrant of left female breast; Z92.3 Personal history of irradiation
CPT/HCPCS: 70553; A9585

== ENCOUNTER → 2020-09-03 | Outpatient (CLI) | payer MEDICARE ==
--- NOTE | 2020-09-03 14:48 | CT ---
EXAMINATION TYPE: CT ChestAbdPelvis w con DATE OF EXAM: 09/03/2020 COMPARISON: Prior CT 05/10/2020 HISTORY: Follow up breast cancer CT DLP: 475.5 mGycm Automated exposure control for dose reduction was used. CONTRAST: CT scan of the chest, abdomen and pelvis is performed with Oral Contrast and with IV Contrast, patien t injected with 100 mL of Isovue 300. FINDINGS: Right breast mass not entirely included on the exam. LUNGS: There has been interval increase size in lung nodules, left lower lobe lung nodule with pleura l extension is bilobed and now measures approximately 15 mm in transverse dimension increased compare d to prior when it measured approximately 12 mm right upper lobe nodule measuring approximately 3 to 4 mm on prior and now measures 5 mm, additional right upper lobe lung nodule measures approximately 1 3 mm and on prior exam measured approximately 9 mm. MEDIASTINUM: There is some left hilar adenopathy greater than right which is progressed slightly in t he interval No pericardial effusion is seen. AORTA: No significant abnormality is seen. OTHER: No additional significant abnormality is seen. LIVER/GB: No significant interval change is appreciated. PANCREAS: No significant abnormality is seen. SPLEEN: No significant abnormality is seen. ADRENALS: No significant abnormality is seen. KIDNEYS: No significant abnormality is seen. REPRODUCTIVE ORGANS: No significant change seen. BOWEL: No significant abnormality is seen. FREE AIR: No Free Air visible. ASCITES: None seen. RETROPERITONEAL ADENOPATHY: No retroperitoneal adenopathy is seen. LYMPH NODES: No greater than 1 cm abdominal or pelvic lymph nodes are appreciated. URINARY BLADDER: No significant abnormality is seen. PELVIC ADENOPATHY: None visualized. OSSEOUS STRUCTURES: Multiple sclerotic foci again noted throughout the skeleton consistent with meta static disease. IMPRESSION: There is been some interval progression in the size of lung nodules.
== END | disposition home or self-care (01) ==
LOC: RADCTMAIN 11:03
PROVIDERS: ATTEND Internal Medicine Hematology & Oncology
DX: C79.51 Secondary malignant neoplasm of bone (principal); C50.312 Malignant neoplasm of lower-inner quadrant of left female breast; C79.31 Secondary malignant neoplasm of brain; R91.8 Other nonspecific abnormal finding of lung field
CPT/HCPCS: 82565; 84520; 71260; 74177; Q9967

== ENCOUNTER → 2020-10-13 | Outpatient (CLI) | payer MEDICARE ==
--- NOTE | 2020-10-13 10:44 | MR ---
EXAMINATION TYPE: MR brain wo/w con DATE OF EXAM: 10/13/2020 COMPARISON: 06/29/2020 HISTORY: Secondary malignant neoplasm of brain TECHNIQUE: Multiplanar, multisequence images of the brain and brainstem is performed without and with IV contras t, utilizing 5 mL intravenous Gadavist . FINDINGS: Exam severely limited due to extreme motion artifact. Diffusion weighted images demonstrate no evidence of a recent infarct or other diffusion abnormality. There is generalized degenerative change with diffuse abnormal signal in the white matter which is n onspecific but most typical of remote white matter ischemia. Heterogeneous signal of the clivus is no nspecific but stable from the prior exam. Areas markedly limited exam due to motion artifact. This co uld be correlated with follow-up CT of the brain with bone Windows. Punctate enhancement along the me dial margin of the left parietal lobe measures 4 mm. Could be vascular or artifactual. Tiny metastati c lesion is felt less likely given the absence of edema additional sequences but not excluded. Given the limitations of the exam this area can be followed on subsequent MRI. There is a stable 1 x 1 cm rim-enhancing lesion in the left parietal lobe. There is a stable 4 mm rim -enhancing lesion just posterior to this lesion. There are no new lesions. Changes of chronic sinusitis and mastoiditis. Orbits are symmetric. Midline structures demonstrate no rmal morphology. The cerebellar tonsils are low-lying in position measuring approximately 2 mm below the foramen magnum. No tonsillar beaking.. Post contrast images demonstrate no abnormal enhancement . The dural venous sinuses appear patent. IMPRESSION: 1. Stable rim-enhancing lesions within the left parietal lobe measuring 1 and 0.4 cm respectively unc hanged from the prior exam. 2. Degenerative and nonspecific white matter changes. Faint enhancement involving the medial aspect t he left parietal lobe on postcontrast axial image 7 most likely is related artifact but could be foll owed on subsequent exam as discussed above for confirmation given limitation of today's exam. 3. Exam is severely limited due to extreme motion artifact. Heterogeneous signal in the clivus may be related to artifact but is also seen on the prior exam. This could be correlated with CT of the brai n with bone windows as clinically warranted. 4. Stable low-lying cerebellar tonsils. 5. Changes of chronic mastoiditis and sinusitis.
== END | disposition home or self-care (01) ==
LOC: RADMRIMAIN 09:45
PROVIDERS: ATTEND Radiology Radiation Oncology
DX: R55 Syncope and collapse (principal); C79.31 Secondary malignant neoplasm of brain
CPT/HCPCS: 70553; A9585

== ENCOUNTER → 2020-10-20 | Outpatient (CLI) | payer MEDICARE ==
--- NOTE | 2020-10-20 14:31 | CT ---
EXAMINATION TYPE: CT ChestAbdPelvis w con DATE OF EXAM: 10/20/2020 INDICATION: Breast cancer COMPARISON: 09/03/2020 CT DLP: 475.3 mGycm CONTRAST: Performed with Oral Contrast and with IV Contrast, patient injected with 80 mL of Isovue 300. TECHNIQUE: Axial images at 5 mm thick sections. Reconstructed images in the coronal plane. Delayed images through the kidneys. FINDINGS: CT CHEST: There is a heterogenous mass measuring 1.7 x 2.1 cm posterior right lateral to the trachea and just p osterior to the thyroid. This appears to reside within the superior mediastinum and may be an abnorma l metastatic lymph node. This is new from comparison. There is a 1.2 cm right suprahilar lymph node this is enlarged from comparison. Small pretracheal lym ph nodes are present. These have hypodense centers and are suspicious. Aortopulmonic window lymphaden opathy is present medially. Left hilar adenopathy may be present. Small to moderate bilateral pleural effusions are present. There is a 0.8 cm area of pneumonitis in t he periphery of the right middle lobe. Series 4 image 22. A 0.4 cm nodules in the periphery of the ri ght midlung. Series 4 image 26. There is a oval nodule with adjacent pneumonitis change in the electronic warfare specialist ior lateral left lung base present previously. This currently measures 1.3 x 2.1 cm and is larger merrick n comparison. The ascending aorta diameter at the level of the main pulmonary artery is 2.9 cm. The main pulmonary artery diameter at the bifurcation is 2.[address] ABDOMEN: Liver: There is a low-density structure which may be slightly irregular but stable in appearance at t he superior right lobe liver. This measures approximately 0 Hounsfield units and 2.3 x 2.4 cm in size . This was present previously. No new hepatic densities are evident. Spleen: Normal Pancreas: Normal Adrenal glands: The adrenal glands are normal. Gallbladder: Normal Kidneys: No masses are evident. Inferior pole renal calcifications are present. These are nonobstruc ting in larger on the left measuring up to 0.6 cm in size. No hydronephrosis is present. No cysts a re present. Delayed images were obtained through the kidneys, which remain unremarkable. Aorta: Vascular calcification is within the aorta. Inferior vena cava: Normal. CT PELVIS: Loops of bowel within the abdomen and pelvis are normal. There are loops of bowel which are incom pletely distended or lack oral contrast limiting their evaluation. Appendix: Normal as visualized. Urinary bladder: Normal. Genitourinary structures: Uterus is normal. Adnexal regions are clear. Osseous structures: Sclerosis along the medial right pubic ramus can be a metastatic lesion. There ar e scattered sclerotic areas within the sacrum and left wing of the sacrum. Sclerotic areas within the posterior L4 vertebral level large sclerotic areas within the L3 vertebral body extending into the p edicle L1 is sclerotic with extension into the right pedicle. Sclerosis is within T5, T7, T8 compatib le with sclerotic metastases. Posterior T3 sclerotic metastasis is likely present. There may be some posterior upper right rib sclerotic metastasis. IMPRESSIONS: 1. Multiple old sclerotic metastases. 2. New superior mediastinal enlarged abnormal adenopathy suspicious for metastatic disease. Additiona l mediastinal lymphadenopathy, while not enlarged, may be suspicious for metastatic disease. 3. Nonobstructing inferior pole renal stones bilaterally. 4. Scattered lung nodules, enlarging from comparison. The largest is in the left lower lung field
== END | disposition home or self-care (01) ==
LOC: RADCTMAIN 11:14
PROVIDERS: ATTEND Internal Medicine Hematology & Oncology
DX: N20.0 Calculus of kidney (principal); R91.8 Other nonspecific abnormal finding of lung field; R59.0 Localized enlarged lymph nodes; C50.812 Malignant neoplasm of overlapping sites of left female breast; C79.51 Secondary malignant neoplasm of bone; Z92.21 Personal history of antineoplastic chemotherapy
CPT/HCPCS: 71260; 74177; Q9967

== ENCOUNTER → 2020-11-08 | Outpatient (CLI) | payer MEDICARE ==
--- NOTE | 2020-11-08 15:39 | XR ---
EXAMINATION TYPE: XR chest 2V DATE OF EXAM: 11/08/2020 COMPARISON: Most recent CT October 20, 2020. Most recent chest x-ray October 21, 2019 HISTORY: History of breast and lung cancer with difficulty in breathing. TECHNIQUE: Frontal and lateral views of the chest are obtained. FINDINGS: Overlying deformed smaller left breast with inferior calcifications redemonstrated. Underl adeola levoconvex scoliosis again seen. Osseous sclerotic metastatic disease seen better on CT versus p bernardo films. Heart size stable and within normal limits. Small to moderate-sized bilateral pleural eff usions slightly larger from most recent CT. Associated bibasilar compressive atelectasis IMPRESSION: Small to moderate-sized bilateral pleural effusions slightly larger in size from most re cent CT.
== END | disposition home or self-care (01) ==
LOC: RADXRMAIN 15:18
PROVIDERS: ATTEND Internal Medicine Hematology & Oncology
DX: J90 Pleural effusion, not elsewhere classified (principal); C50.812 Malignant neoplasm of overlapping sites of left female breast; C79.31 Secondary malignant neoplasm of brain; Z17.0 Estrogen receptor positive status [ER+]
CPT/HCPCS: 71046

== ENCOUNTER → 2020-11-15 | Outpatient (CLI) | payer MEDICARE ==
[2020-11-15 16:27] LABS: African American GFR (CKD) >90 (>60 ml/min/1.73 sqM); Blood Urea Nitrogen 22 mg/dL (7-17); Non-African American GFR(CKD) 89 (>60 ml/min/1.73 sqM)
--- NOTE | 2020-11-15 17:18 | CT ---
EXAMINATION TYPE: CT angio chest DATE OF EXAM: 11/15/2020 COMPARISON: Chest CT scan 10/20/2020 HISTORY: SOB CT DLP: 149.6 mGycm Automated exposure control for dose reduction was used. CONTRAST: Performed with IV Contrast, patient injected with 75cc mL of Isovue 370. There are 3-D post processed images. There are moderately large bilateral pleural effusions. There is consolidation and atelectasis at the posterior lung raines adjacent to the pleural fluid. There is increased soft tissue density at the l eft pulmonary hilum encasing left lower lobe pulmonary arteries. There is 2.5 cm enlarged right bronc hial lymph nodes. There is 2.5 cm enlarged right paratracheal lymph node. There is normal contrast opacification of the pulmonary arteries. There are no filling defects. Thora cic aorta is intact. There is no aneurysm or dissection. The ascending aorta measures 3.2 cm. There i s irregular 2.5 cm hypodense focus in the right lobe of the liver. Heart size is fairly normal. There is small pericardial effusion. There is osteosclerosis in multiple vertebral bodies and also in the sternum right scapula. IMPRESSION: No evidence of pulmonary embolism. Bilateral pleural effusions and basilar atelectasis increased compared to old exam. Mediastinal and b ronchial adenopathy increased compared to old exam. Extensive osteoblastic changes in the axial skeleton consistent with metastatic disease unchanged.
== END | disposition home or self-care (01) ==
LOC: RADCTMAIN 15:58
PROVIDERS: ATTEND Internal Medicine Hematology & Oncology
DX: J98.11 Atelectasis (principal); J90 Pleural effusion, not elsewhere classified; R59.1 Generalized enlarged lymph nodes
CPT/HCPCS: 82565; 84520; 71275; 36415; Q9967

== ENCOUNTER 2020-11-16 08:55 | Day surgery (SDC) | payer MEDICARE ==
--- NOTE | 2020-11-16 10:36 | US ---
ULTRASOUND GUIDED BIOPSY SOFT TISSUE NECK: CLINICAL HISTORY: Request for neck biopsy FINDINGS: Preliminary imaging demonstrated no evidence of sizable mass within the soft tissues of the neck. IMPRESSION: 1. Discontinued biopsy.
[2020-11-16 10:49] VITALS: BP 113/70; PULSE 54; RESP 18; TEMP 97.6
== END 2020-11-16 10:45 | disposition home or self-care (01) ==
LOC: RADPROMAIN 08:55
PROVIDERS: ATTEND Internal Medicine Hematology & Oncology
DX: C50.812 Malignant neoplasm of overlapping sites of left female breast (principal); Z53.8 Procedure and treatment not carried out for other reasons
CPT/HCPCS: 76536

== ENCOUNTER 2020-11-19 12:43 | Day surgery (SDC) | payer MEDICARE ==
[2020-11-19 13:25] VITALS: RESP 16; TEMP 98.1
[2020-11-19 13:47] LABS: Mean Platelet Volume 7.6; Platelet Count 262 k/uL (150-450)
[2020-11-19 14:09] LABS: Prothrombin Time 10.6 sec (9.0-12.0)
--- NOTE | 2020-11-19 14:54 | US ---
Ultrasound-guided therapeutic and diagnostic thoracentesis DATE OF EXAM: 11/19/2020 CLINICAL HISTORY: Shortness of breath The procedure was discussed with the patient. The risks, complications, benefits, and alternatives we re discussed and any questions were answered. Informed consent was obtained. The patient was placed supine on the ultrasound table and prepped and draped in the usual sterile fas hion. All elements of maximal barrier and sterile technique were utilized. Under ultrasound guidance, access into the pleural space was obtained, via the thoracentesis catheter system and direct ultrasound guidance. Ap proximately 1.2 liters of straw-colored fluid was removed. Sample sent to pathology for analysis. The patient was stable throughout the procedure and remained stable upon discharge from Department of Radiology. IMPRESSION: 1. Successful therapeutic and diagnostic thoracentesis under ultrasound guidance.
--- NOTE | 2020-11-19 14:55 | XR ---
EXAMINATION TYPE: XR chest 1V portable DATE OF EXAM: 11/19/2020 COMPARISON: 11/08/2020 INDICATION: Postthoracentesis TECHNIQUE: Single frontal view of the chest is obtained. FINDINGS: The heart size is normal. The pulmonary vasculature is normal. There is a small to moderate left pleural effusion. No pneumothorax is evident. Very minimal right pl eural effusion is present. IMPRESSION: 1. Moderate left and small right pleural effusions. 2. No pneumothorax is evident.
[2020-11-19 15:19] VITALS: BP 123/75; PULSE 70
[2020-11-19 17:57] LABS: Appearance,BF Clear; Nucleated Cells, Body Fluid 289 /uL; RBC, Body Fluid 117 /uL
[2020-11-19 18:32] LABS: Mononuclear WBC,Body Fluid 95 %; Polynuclear WBC,Body Fluid 5 %; Total Cells Counted,Body Fluid 100
--- NOTE | 2020-11-23 07:01 | CDI ---
Date: 11.23.20 CDS/Ceramic Tile Setter Name: Tessy Blum Phone: If any questions, call Yanira Ritter Patient Observer at [phone] Patient Name: Isabel Diaz Admit Date 11.19.20 Discharge Date: 11.19.20 ATTENTION: The [facility] Coding Staff appreciate your assistance in clarifying documentation. Please respond to the clarification below the line at the bottom and electronically sign. The [facility] Coding staff will review the response and follow-up if needed. Please note: Queries are made part of the Legal Health Record. If you have any questions, please contact the Patient Observer. Dear Dr. Drummond In order to code to the greatest specificity and for the greatest reimbursement I need the following information: Please clarify which site the thoracentesis was performed. __Left __right __bilateral. Thank you for your kind consideration. MTDD
== END 2020-11-19 14:21 | disposition home or self-care (01) ==
LOC: RADPROMAIN 12:43
PROVIDERS: ATTEND Internal Medicine Hematology & Oncology
DX: C50.919 Malignant neoplasm of unspecified site of unspecified female breast (principal); J91.0 Malignant pleural effusion; C41.9 Malignant neoplasm of bone and articular cartilage, unspecified; C71.9 Malignant neoplasm of brain, unspecified
CPT/HCPCS: 32555; 36415; 71045; 85049; 85610; 88108; 88305; 89050

== ENCOUNTER 2020-11-22 08:49 | Day surgery (SDC) | payer MEDICARE ==
[2020-11-22 09:13] VITALS: TEMP 97.7
--- NOTE | 2020-11-22 10:50 | XR ---
EXAMINATION TYPE: XR chest 1V portable DATE OF EXAM: 11/22/2020 COMPARISON: Chest x-ray 3 days ago. CTA chest 1 week ago. HISTORY: Post left-sided thoracentesis. History of breast cancer. TECHNIQUE: Single frontal view of the chest is obtained. FINDINGS: There is improved left sided pleural effusion after thoracentesis. No pneumothorax noted. Persistent small left greater than right pleural effusions. Associated bibasilar compressive atelecta sis . Persistent left hilar fullness. Redemonstration of known osseous sclerotic metastatic disease and underlying scoliosis. IMPRESSION: No pneumothorax after left-sided thoracentesis.
[2020-11-22 11:13] VITALS: RESP 18
[2020-11-22 11:16] VITALS: PULSE 99
[2020-11-22 11:30] VITALS: BP 110/65
--- NOTE | 2020-11-22 13:37 | US ---
EXAMINATION TYPE: US thoracentesis DATE OF EXAM: 11/22/2020 COMPARISON: NONE HISTORY: Pleural effusion on the left. FINDINGS: Maximal barrier technique was utilized. The skin overlying a suitable pocket of fluid was localized and the overlying skin prepped and draped. Lidocaine was used for local anesthesia. Ultras ound was used with sterile technique. A 5 Gabonese catheter over guide needle was advanced into the pl eural fluid collection using ultrasound guidance and the catheter advanced, needle removed. Approxim ately 1.3 liter(s) of serous fluid was removed. Catheter was withdrawn and hemostasis achieved. The re is no immediate complication. The patient discharged in stable condition without complication. IMPRESSION: STATUS POST ULTRASOUND GUIDED THORACENTESIS, POST PROCEDURE CHEST X-RAY PENDING. THIS [place] OCEDURE WAS PERFORMED BY THE UNDERSIGNED.
== END 2020-11-22 11:45 | disposition home or self-care (01) ==
LOC: RADPROMAIN 08:49
PROVIDERS: ATTEND Internal Medicine Hematology & Oncology
DX: C50.919 Malignant neoplasm of unspecified site of unspecified female breast (principal); C78.2 Secondary malignant neoplasm of pleura; C78.00 Secondary malignant neoplasm of unspecified lung
CPT/HCPCS: 32555; 71045; 88108; 88305; 88341; 88342

== ENCOUNTER 2020-12-02 16:27 | Inpatient (IN) | payer MEDICARE ==
--- NOTE | 2020-12-02 17:05 | ED ---
SOB HPI - General Source: patient, family, RN notes reviewed Mode of arrival: wheelchair Limitations: no limitations <Martinez Nguyen - Last Filed: 12/02/20 18:26> <Alex Wilks - Last Filed: 12/02/20 18:50> - General Chief Complaint: Shortness of Breath Stated Complaint: Cancer pt, SOB Time Seen by Provider: 12/02/20 16:41 - History of Present Illness Initial Comments: 70-year-old female presents emergency Department with chief complaint of shortness of breath. All information is given by family member in the room. Patient is having extreme difficulty with talking. Patient's recently had thoracentesis on the and . Patient states she both lungs on this time. 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 Patient's been having increasing loss of her voice which has been worsening since Eric. Patient denies any chest pain denies any leg pain or leg swelling. Patient is on no current treatment for her breast cancer. (Martinez Nguyen) - Related Data Home Medications Medication Instructions Recorded Confirmed Cholecalciferol [Vitamin D3] 400 unit PO DAILY@1200 08/13/19 12/02/20 Calcium Carbonate [Calcium] 600 mg PO DAILY 11/03/20 12/02/20 Allergies Allergy/AdvReac Type Severity Reaction Status Date / Time No Known Allergies Allergy Verified 12/02/20 16:39 Review of Systems ROS Other: All systems not noted in ROS Statement are negative. <Martinez Nguyen - Last Filed: 12/02/20 18:26> ROS Other: All systems not noted in ROS Statement are negative. <Alex Wilks - Last Filed: 12/02/20 18:50> ROS Statement: Those systems with pertinent positive or pertinent negative responses have been documented in the HPI. Past Medical History Past Medical History: Cancer Additional Past Medical History / Comment(s): L &R Breast Cancer with mets to bone, brain and lungs - brain radiation, bilateral lung thoracentesis History of Any Multi-Drug Resistant Organisms: None Reported Past Surgical History: Breast Surgery Additional Past Surgical History / Comment(s): breast biopsies, lymph node biopsy "+" 2017, lung biopsy. Past Anesthesia/Blood Transfusion Reactions: No Reported Reaction Past Psychological History: No Psychological Hx Reported Smoking Status: Never smoker Past Alcohol Use History: None Reported Past Drug Use History: None Reported - Past Family History Mother Family Medical History: No Reported History <Martinez Nguyen - Last Filed: 12/02/20 18:26> General Exam Limitations: no limitations General appearance: alert, in no apparent distress, cachectic Head exam: Present: atraumatic, normocephalic, normal inspection Eye exam: Present: normal appearance, PERRL, EOMI. Absent: scleral icterus, conjunctival injection, periorbital swelling ENT exam: Present: normal exam, mucous membranes moist Neck exam: Present: normal inspection, full ROM. Absent: tenderness, meningismu s, lymphadenopathy Respiratory exam: Present: decreased breath sounds. Absent: normal lung sounds bilaterally, respiratory distress, wheezes, rales, rhonchi, stridor Cardiovascular Exam: Present: regular rate, normal rhythm, normal heart sounds. Absent: systolic murmur, diastolic murmur, rubs, gallop, clicks GI/Abdominal exam: Present: soft, normal bowel sounds. Absent: distended, tenderness, guarding, rebound, rigid Extremities exam: Absent: pedal edema, calf tenderness Neurological exam: Present: alert, oriented X3 Skin exam: Present: warm, dry, intact, normal color. Absent: rash <Martinez Nguyen - Last Filed: 12/02/20 18:26> Course <Alex Wilks - Last Filed: 12/02/20 18:50> Vital Signs 12/02/20 12/02/20 16:34 18:45 Temperature 97.6 F Pulse Rate 64 80 Respiratory 18 19 Rate Blood Pressure 101/72 121/79 O2 Sat by Pulse 91 L 96 Oximetry - Reevaluation(s) Reevaluation #1: 12/02/20 18:32 PA supervision: I did evaluate this patient patient did present with complaint shortness of breath she has a history of metastatic cancer. Patient does have bilateral pleural effusions which have progressed in the last 10 days. The soonest outpatient interventional radiology is not available total December. I did discuss the case with Dr. Burks who is agreed to accept the patient 12/02/20 18:50 I did personally discuss the findings with patient family and did discuss the findings and plan. (Alex Wilks) Medical Decision Making - Lab Data Result diagrams: 12/02/20 17:07 12/02/20 17:07 <Martinez Nguyen - Last Filed: 12/02/20 18:26> - Lab Data Result diagrams: 12/02/20 17:07 12/02/20 17:07 <Alex Wilks - Last Filed: 12/02/20 18:50> - Medical Decision Making 70-year-old presented for dyspnea. Patient has bilateral effusions related to her breast cancer with metastasis. Patient is hypoxic. Patient is having difficulty breathing. Patient does have metastasis to the brain, bone. Patient is been followed with Dr. Mccormick does not have a primary care physician. (Martinez Nguyen) - Lab Data Lab Results 12/02/20 12/02/20 12/02/20 Range/Units 17:07 17:07 17:07 WBC 7.7 (3.8-10.6) k/uL RBC 4.54 (3.80-5.40) m/uL Hgb 14.3 (11.4-16.0) gm/dL Hct 43.9 (34.0-46.0) % MCV 96.7 (80.0-100.0) fL MCH 31.4 (25.0-35.0) pg MCHC 32.5 (31.0-37.0) g/dL RDW 14.8 (11.5-15.5) % Plt Count 350 (150-450) k/uL MPV 7.6 Neutrophils % 90 % Lymphocytes % 3 % Monocytes % 6 % Eosinophils % 0 % Basophils % 0 % Neutrophils # 6.9 (1.3-7.7) k/uL Lymphocytes # 0.3 L (1.0-4.8) k/uL Monocytes # 0.4 (0-1.0) k/uL Eosinophils # 0.0 (0-0.7) k/uL Basophils # 0.0 (0-0.2) k/uL PT 10.4 (9.0-12.0) sec INR 1.0 (<1.2) APTT 22.1 (22.0-30.0) sec Sodium 140 (137-145) mmol/L Potassium 4.7 (3.5-5.1) mmol/L Chloride 104 (98-107) mmol/L Carbon Dioxide 29 (22-30) mmol/L Anion Gap 7 mmol/L BUN 31 H (7-17) mg/dL Creatinine 0.70 (0.52-1.04) mg/dL Est GFR (CKD-EPI)AfAm >90 (>60 ml/min/1.73 sqM) Est GFR (CKD-EPI)NonAf 89 (>60 ml/min/1.73 sqM) Glucose 111 H (74-99) mg/dL Calcium 8.8 (8.4-10.2) mg/dL Magnesium 2.2 (1.6-2.3) mg/dL Total Bilirubin 0.5 (0.2-1.3) mg/dL AST 63 H (14-36) U/L ALT 58 H (4-34) U/L Alkaline Phosphatase 121 (38-126) U/L Troponin I (0.000-0.034) ng/mL NT-Pro-B Natriuret Pep pg/mL Total Protein 5.8 L (6.3-8.2) g/dL Albumin 3.1 L (3.5-5.0) g/dL 12/02/20 12/02/20 Range/Units 17:07 17:07 WBC (3.8-10.6) k/uL RBC (3.80-5.40) m/uL Hgb (11.4-16.0) gm/dL Hct (34.0-46.0) % MCV (80.0-100.0) fL MCH (25.0-35.0) pg MCHC (31.0-37.0) g/dL RDW (11.5-15.5) % Plt Count (150-450) k/uL MPV Neutrophils % % Lymphocytes % % Monocytes % % Eosinophils % % Basophils % % Neutrophils # (1.3-7.7) k/uL Lymphocytes # (1.0-4.8) k/uL Monocytes # (0-1.0) k/uL Eosinophils # (0-0.7) k/uL Basophils # (0-0.2) k/uL PT (9.0-12.0) sec INR (<1.2) APTT (22.0-30.0) sec Sodium (137-145) mmol/L Potassium (3.5-5.1) mmol/L Chloride (98-107) mmol/L Carbon Dioxide (22-30) mmol/L Anion Gap mmol/L BUN (7-17) mg/dL Creatinine (0.52-1.04) mg/dL Est GFR (CKD-EPI)AfAm (>60 ml/min/1.73 sqM) Est GFR (CKD-EPI)NonAf (>60 ml/min/1.73 sqM) Glucose (74-99) mg/dL Calcium (8.4-10.2) mg/dL Magnesium (1.6-2.3) mg/dL Total Bilirubin (0.2-1.3) mg/dL AST (14-36) U/L ALT (4-34) U/L Alkaline Phosphatase (38-126) U/L Troponin I <0.012 (0.000-0.034) ng/mL NT-Pro-B Natriuret Pep 201 pg/mL Total Protein (6.3-8.2) g/dL Albumin (3.5-5.0) g/dL Disposition <Martinez Nguyen - Last Filed: 12/02/20 18:26> <Alex Wilks - Last Filed: 12/02/20 18:50> Clinical Impression: Metastatic breast cancer, Bilateral pleural effusion Disposition: ADMITTED IP TO THIS HOSP Condition: Serious
[2020-12-02 17:24] LABS: Basophils % (A) 0 %; Eosinophils % (A) 0 %; HCT 43.9 % (34.0-46.0); HGB 14.3 gm/dL (11.4-16.0); Lymphocytes # (A) 0.3 k/uL (1.0-4.8); Lymphocytes % (A) 3 %; MCH 31.4 pg (25.0-35.0); MCHC 32.5 g/dL (31.0-37.0); MCV 96.7 fL (80.0-100.0); Mean Platelet Volume 7.6; Monocytes # (A) 0.4 k/uL (0-1.0); Monocytes % (A) 6 %; Neutrophils # (A) 6.9 k/uL (1.3-7.7); Neutrophils % (A) 90 %; Platelet Count 350 k/uL (150-450); RBC 4.54 m/uL (3.80-5.40); RDW 14.8 % (11.5-15.5); WBC 7.7 k/uL (3.8-10.6)
[2020-12-02 17:37] LABS: ALT 58 U/L (4-34); AST 63 U/L (14-36); African American GFR (CKD) >90 (>60 ml/min/1.73 sqM); Albumin 3.1 g/dL (3.5-5.0); Alkaline Phosphatase 121 U/L (38-126); Anion Gap 7 mmol/L; Blood Urea Nitrogen 31 mg/dL (7-17); Calcium 8.8 mg/dL (8.4-10.2); Carbon Dioxide 29 mmol/L (22-30); Chloride 104 mmol/L (98-107); Glucose 111 mg/dL (74-99); Magnesium 2.2 mg/dL (1.6-2.3); Non-African American GFR(CKD) 89 (>60 ml/min/1.73 sqM); Partial Thromboplastin Time 22.1 sec (22.0-30.0); Potassium 4.7 mmol/L (3.5-5.1); Prothrombin Time 10.4 sec (9.0-12.0); Sodium 140 mmol/L (137-145); Total Bilirubin 0.5 mg/dL (0.2-1.3); Total Protein 5.8 g/dL (6.3-8.2)
--- NOTE | 2020-12-02 18:05 | XR ---
EXAMINATION TYPE: XR chest 2V DATE OF EXAM: 12/02/2020 COMPARISON: 11/22/2020 HISTORY: Left side thoracentesis. Difficulty breathing. Short of breath. TECHNIQUE: 2 views FINDINGS: There are moderate bilateral pleural effusions. There is pulmonary vascular congestion. Hea rt is probably enlarged. Bony thorax is intact. IMPRESSION: Congestive heart failure with bilateral pleural effusions. Pleural fluid increased compar ed to old exam. Pulmonary congestion slightly worse than old exam.
[2020-12-02] MEDS ORDERED: NALOXONE 0.4 MG/ML 1 ML VIAL IV PRN (18:28)
--- NOTE | 2020-12-03 09:59 | P.CNPUL ---
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, patient has a history of the metastatic stage IV breast cancer diagnosed about 12 years ago, patient has been on chemotherapy in the past was stopped as has been nonresponding, patient has a progressive pleural effusion bilaterally which was tapped recently came back positive for cancer, due to recurrence of problem and hypoxia came into the hospital, he denies any chest pain denies any cough or sputum production denies any night sweat chills of fever Review of Systems All systems: negative Past Medical History Past Medical History: Cancer Additional Past Medical History / Comment(s): L &R Breast Cancer with mets to bone, brain and lungs - brain radiation, bilateral lung thoracentesis History of Any Multi-Drug Resistant Organisms: None Reported Past Surgical History: Breast Surgery Additional Past Surgical History / Comment(s): breast biopsies, lymph node biopsy "+" 2016, lung biopsy. Past Anesthesia/Blood Transfusion Reactions: No Reported Reaction Past Psychological History: No Psychological Hx Reported Smoking Status: Never smoker Past Alcohol Use History: None Reported Past Drug Use History: None Reported - Past Family History Mother Family Medical History: No Reported History Medications and Allergies Home Medications Medication Instructions Recorded Confirmed Type No Known Home Medications 12/02/20 12/02/20 History Allergies Allergy/AdvReac Type Severity Reaction Status Date / Time No Known Allergies Allergy Verified 12/02/20 18:58 Physical Exam Vitals: Vital Signs Temp Pulse Pulse Resp BP BP Pulse Ox 12/03/20 09:00 97.5 F L 82 18 96 12/03/20 02:00 97.7 F 72 20 110/74 96 12/02/20 20:00 97.8 F 85 16 116/78 95 12/02/20 19:59 95 12/02/20 18:45 80 19 121/79 96 12/02/20 16:34 97.6 F 64 18 101/72 91 L Intake and Output 12/02/20 12/03/20 12/03/20 22:59 06:59 14:59 Other: # Voids 2 Weight 43.998 kg - Constitutional General appearance: average body habitus, cooperative, disheveled, mild distress - EENT Eyes: PERRLA Ears: bilateral: normal - Neck Carotids: bilateral: upstroke normal Thyroid: bilateral: normal size - Respiratory Respiratory: bilateral: diminished (Dullness to percussion more so on the left side compared to right side) - Cardiovascular Rhythm: regular Heart sounds: normal: S1, S2 - Gastrointestinal General gastrointestinal: soft - Musculoskeletal Musculoskeletal: gait normal, generalized weakness, strength equal bilaterally - Psychiatric Psychiatric: A&O x's 3, appropriate affect, intact judgment & insight Results - Laboratory Findings CBC and BMP: 12/02/20 17:07 12/02/20 17:07 PT/INR, D-dimer PT 10.4 sec (9.0-12.0) 12/02/20 17:07 INR 1.0 (<1.2) 12/02/20 17:07 Abnormal lab findings: Abnormal Labs 12/02/20 12/02/20 17:07 17:07 Lymphocytes # 0.3 L BUN 31 H Glucose 111 H AST 63 H ALT 58 H Total Protein 5.8 L Albumin 3.1 L - Diagnostic Findings Chest x-ray: report reviewed, image reviewed (Finding as noted above) Assessment and Plan Assessment: Recurrent bilateral pleural effusion due to metastatic stage IV breast cancer Left more than the right side Malignant pleural effusion Metastatic breast cancer stage IV 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
--- NOTE | 2020-12-03 14:21 | XR ---
EXAMINATION TYPE: XR chest 1V portable DATE OF EXAM: 12/03/2020 COMPARISON: 12/02/2020 HISTORY: Post right thoracentesis TECHNIQUE: Single frontal view of the chest is obtained. FINDINGS: Bilateral consolidation and pleural effusion. No sizable pneumothorax. Large left effusion seen. There are sclerotic vertebral body at the thoracolumbar junction and left scapula suspicious f or metastases. Underlying venous congestion not excluded. IMPRESSION: 1. No sizable pneumothorax with small right effusion and basilar consolidation. 2. Large left pleural effusion and consolidation. 3. Suspect osseous metastases.
--- NOTE | 2020-12-03 14:23 | P.CONS ---
History of Present Illness - Reason for Consult Consult date: 12/03/20 Breast Cancer, pleural effusion Requesting physician: Martinez Nguyen - Chief Complaint progressive disease - History of Present Illness This is a very nice lady who is well known to our practice, primary oncologist Dr. Mccormick. She originally presented with palpable left breast mass,she first noticed in around 2009 but she ignored it. It became progressively larger,occupying the entire breast,then the entire breast became ulcerated and all breast tissues disappeared,bloody drainage and swollen left arm. She started femara on 12/27/2016. On 01/01/2017,bone scan revealed evidence of bone metastasis. On 01/01/2017,CT scan of chest/abdomen/pelvis revealed metastatic disease to liver,bone mets and bilateral axillary nodes. On 01/09/2017,biopsy of right axillary node was positive for metastatic breast cancer,ER/ND strongly positive and HER2/TRUE negative. She started femara on 12/27/2016. She started ibrance on 01/30/[address] scan of chest/abdomen/pelvis on 08/01/2017 revealed improvement in visceral disease and adenopathies,?sclerotic bone lesions Repeat CT scan of chest/abdomen/pelvis on 01/07/2018 revealed continuing improvement in liver lesions. Repeat CT scan of chest/abdomen/pelvis on 08/01/2018 revealed stable liver and bone lseions,?larger right breast lesion. She completed palliative XRT to right breast on 10/15/2018. On 10/29/2018,her LFT were up,ibrance was held,had repeat LFT on and resumed ibrance. On 11/21/2018,repeat CT scan of abdomen revealed stable liver lesions. On 07/30/2019,repeat CT scan of chest/abdomen/pelvis revealed new lung nodules and enlarging mediastinal nodes. On 08/26/2019,she had a CT guided biopsy of the lung nodule,pathology was positive for metastatic breast cancer,ER/ND and HER2/TRUE NEGATIVE. A liquid biopsy was sent to [facility],it revealed somatic mutation in BRCA1 and TP53,RNF43,MSI-Stable,other mutation of unknwon significance. The tissue biopsy was also sent to [facility] for additional evaluation and PDL-1 studies which revealed similar mutation,PDL1 was not done (not enough tissue on the block. Her genetic testing were positive for BRCA1 germline mutation She started xeloda on 09/24/2019. On 12/09/2019,repeat CT scan of chest/abdomen/pelvis revealed stable disease. Xeloda schedule was changed to week on,week off in December/2019 due to significnat dryness and pain in hands and feet. Repeat CT scan of chest/abdomen/pelvis on 03/09/2020 revealed evidence of disease progression and xeloda was discontinued. She started Lynparza in March/2020.(she did not want to take more than 150 mg BID) In April/2020,she presented with RUE weakness and numbness,brain MRI on 04/14/2020 revealed diffuse brain metastasis,she completed whole brain radiation. Repeat CT scan of chest/abdomen/pelvis on 05/10/2020 revealed significant improvement in her disease. On 06/29/2020,repeat brain MRI revealed significant improvement. She also had further palliative XRT to right breast,completed in July/2020. On 09/03/2020,repeat CT scan of chest/abdomen/pelvis revealed very slight incre ase in the size of lung nodules. She is tolerating lynparza well,her neurological symptoms resolved except for mild numbness and weakness in LUE,she is relatively active,no headaches,no nausea/vomiting,she did increase her lynparza dose to 300 BID,however,she developed significant pancytopenia. On 10/20/2020,repeat CT scan of chest/abdomen/pelvis revealed evidence of disease progression. Lynparza was discontinued. On 11/08/2020 (she wanted to wait until after [facility]) IR attempted CT guided biopsy of lung but could not be done. Over the last 2 weeks,she has had significant worsening dyspnea, CT scan of chest on 11/15/2020 revealed significant bilateral pleural effusion,it was recommended to be admitted to the hospital but she declined. She is very weak,SOB with slight exertion,lost a lot of weight. She now has presented to [facility] with progressive symptoms. We attempted to schedule thoracentesis on 12/02/20 although her symptoms became worse. At last visit with Dr. Mccormick he did have a long discussion with the patient and her sister, describing the overall prognosis is considered poor at this time. He again highly recommended hospital admission on 11/19/20 but she declined. On 11/24/20 - She underwent diagnostic and therapeutic thoracentesis. 1310cc was removed, and unfortunetly pathology returned with possitive fluid cytology indicative of progression. She likely is going to require PleuRx catheter. we will ask Thoracic surgery to evaluate. She has discussed other palliative options of systemic chemotherapy,with taxane,possibly adding immunotherapy,if PDL-1 positive,if her PS improved.she would consider it. Although at this time her performance status is too poor and would need control or plan for ongoing malignant effusions. On 12/02/20 - 1.3Liters was removed with therapeutic thoracentesis Review of Systems All systems: negative Constitutional: Reports as per HPI Past Medical History Past Medical History: Cancer Additional Past Medical History / Comment(s): L &R Breast Cancer with mets to bone, brain and lungs - brain radiation, bilateral lung thoracentesis History of Any Multi-Drug Resistant Organisms: None Reported Past Surgical History: Breast Surgery Additional Past Surgical History / Comment(s): breast biopsies, lymph node bio psy "+" 2017, lung biopsy. Past Anesthesia/Blood Transfusion Reactions: No Reported Reaction Past Psychological History: No Psychological Hx Reported Smoking Status: Never smoker Past Alcohol Use History: None Reported Past Drug Use History: None Reported - Past Family History Mother Family Medical History: No Reported History Medications and Allergies Home Medications Medication Instructions Recorded Confirmed Type No Known Home Medications 12/02/20 12/02/20 History Allergies Allergy/AdvReac Type Severity Reaction Status Date / Time No Known Allergies Allergy Verified 12/02/20 18:58 Physical Exam Vitals: Vital Signs Temp Pulse Pulse Resp BP BP Pulse Ox 12/03/20 13:46 92 16 130/80 94 L 12/03/20 11:55 97.6 F 84 15 103/70 93 L 12/03/20 09:00 97.5 F L 82 18 96 12/03/20 02:00 97.7 F 72 20 110/74 96 12/02/20 20:00 97.8 F 85 16 116/78 95 12/02/20 19:59 95 12/02/20 18:45 80 19 121/79 96 12/02/20 16:34 97.6 F 64 18 101/72 91 L Intake and Output 12/02/20 12/03/20 12/03/20 22:59 06:59 14:59 Other: # Voids 2 1 Weight 43.998 kg - Constitutional General appearance: cooperative, mild distress - EENT Eyes: dentition normal ENT: NA/AT - Neck Neck: lymphadenopathy - Respiratory Respiratory: bilateral: diminished (Increased effort) - Cardiovascular Rhythm: regular leg Peripheral Edema: bilateral: Trace - Gastrointestinal General gastrointestinal: soft - Integumentary Integumentary: pale - Neurologic non-focal - Musculoskeletal Musculoskeletal: generalized weakness, strength equal bilaterally - Psychiatric Psychiatric: A&O x's 3, appropriate affect Results CBC & Chem 7: 12/02/20 17:07 12/02/20 17:07 Labs: Abnormal Lab Results - Last 24 Hours (Table) 12/02/20 12/02/20 Range/Units 17:07 17:07 Lymphocytes # 0.3 L (1.0-4.8) k/uL BUN 31 H (7-17) mg/dL Glucose 111 H (74-99) mg/dL AST 63 H (14-36) U/L ALT 58 H (4-34) U/L Total Protein 5.8 L (6.3-8.2) g/dL Albumin 3.1 L (3.5-5.0) g/dL Chest x-ray: report reviewed Assessment and Plan (1) Malignant pleural effusion Current Visit: Yes Status: Acute Code(s): J91.0 - MALIGNANT PLEURAL EFFUSION SNOMED Code(s): 862256005 (2) Metastatic breast cancer Current Visit: Yes Status: Acute Code(s): C50.919 - MALIGNANT NEOPLASM OF UNSP SITE OF UNSPECIFIED FEMALE BREAST SNOMED Code(s): 498675718 Plan: Interval History within HPI - Recurrent Malignant Pleural effusion - New Progression, although decreasing performance status and prior multiple lines of therapy - CTS to evaluate and plan for pleurex (likely will have to be performed as outpatient since recent thoracentesis 12/02/20) - Overall Prognosis is poor, patient and sister did discuss in detail with Dr. Mccormick, if performance status improves and can control symptoms maybe able to consider targeted or immune therapy, although at this time will need to increase strength and obtain pleurex prior. Long discussion with patient and sister At this time decreased performance and malnutrition is the biggest concern as her cancer is making it difficult to eat, swallow evaluation will be ordered We have asked for alternative nutritional source over weekend and increased activity PT/OT PLeurex would assist in palliative care drainage and benefits for patients goals of care outweigh risks. Thoracentesis again on Sunday IV Fluids for now at [facility] Dr. Abreu presented patient with option of chemotherapy to attempt salvage reduction for palliation, plan is to increase nutrition, performance, and palliaitively decrease pleural effusions over weekend into sunday and re- evaluate for potential chemo Sunday Thank you for allowing us to participate in the care of this patient, we will follow along with you. Greater than 45 minutes with patient and sister Physician attest: I have completed the full history and physical and agree with above dictation, dictated as a scribe
--- NOTE | 2020-12-03 14:26 | US ---
EXAMINATION TYPE: US thoracentesis DATE OF EXAM: 12/03/2020 COMPARISON: Chest x-ray 12/02/2020 HISTORY: Pleural effusion right. FINDINGS: Maximal barrier technique was utilized. The skin overlying a suitable pocket of fluid was localized and the overlying skin prepped and draped. Lidocaine was used for local anesthesia. Ultras ound was used with sterile technique. A 5 [place] catheter over guide needle was advanced into the pl eural fluid collection using ultrasound guidance and the catheter advanced, needle removed. Approxim ately 1.3 liter(s) of serous fluid was removed. Catheter was withdrawn and hemostasis achieved. The re is no immediate complication. The patient discharged in stable condition without complication. IMPRESSION: STATUS POST ULTRASOUND GUIDED THORACENTESIS, POST PROCEDURE CHEST X-RAY PENDING. THIS MS OCEDURE WAS PERFORMED BY THE UNDERSIGNED.
[2020-12-03] MEDS: DEXTROSE 5%-0.9% NACL 1,000 ML IV SCH (16:57)
--- NOTE | 2020-12-03 18:04 | P.GSCN ---
History of Present Illness Consult date: 12/03/20 Reason for Consult: Recurrence of bilateral pleural effusions. Requesting physician: Wilmer Morrow History of present illness: This a 70-year-old female patient who does not follow with the primary care physician on a regular basis as an outpatient. She has a past medical history significant for metastatic breast cancer which was diagnosed round 2009 according to the patient. Her genetic testing was positive for BRCA1. According to the patient's sister who is present at her bedside ignored the breast cancer and did not seek treatment. Recently, the patient has had complaints of progressive dyspnea with history of bilateral pleural effusions and subsequently underwent a thoracentesis on 11/19/2020 to her right chest with 1.2 L of straw-colored fluid removed and to her left chest on 11/22/2020 with 1.3 L of serous fluid drained. These thoracentesis were completed by interventional radiology. The pleural fluid cytology at that time was positive for metastatic carcinoma consistent with ductal breast origin. On 12/02/2020 the patient presented to the emergency department here at [facility] with complaints of shortness of breath, losing her voice and difficulty with swallowing. The patient's sister who is present at her bedside is answering most of the patient's questions due to the patient's shortness of breath and is losing her voice and is only able to whisper with speaking. She denies any recent fever, chills, chest pain, dizziness, palpitations, coughing, hemoptysis or hematemesis. Subsequently due to the patient's history of recent pleural effusion and her presenting symptoms a chest x-ray was completed in the emergency department which showed congestive heart failure with bilateral pleural effusions. A repeat chest x-ray this morning demonstrated bilateral consolidation and pleural effusions with sclerotic vertebral body and thoracolumbar junction and left scapula suspicious for metastasis according to the chest x-ray report. Due to the patient's presenting symptoms and recurrence of her pleural effusions a consult was placed to Dr. Karlos Foote for further evaluation and treatment recommendations for Pleurx catheter placement. Review of Systems A 14 point review of systems was completed and was negative except as mentioned in the HPI. Past Medical History Past Medical History: Cancer Additional Past Medical History / Comment(s): L &R Breast Cancer with mets to bone, brain and lungs - brain radiation, bilateral lung thoracentesis History of Any Multi-Drug Resistant Organisms: None Reported Past Surgical History: Breast Surgery Additional Past Surgical History / Comment(s): breast biopsies, lymph node biopsy "+" 2017, lung biopsy. Past Anesthesia/Blood Transfusion Reactions: No Reported Reaction Past Psychological History: No Psychological Hx Reported Smoking Status: Never smoker Past Alcohol Use History: None Reported Past Drug Use History: None Reported - Past Family History Mother Family Medical History: No Reported History Medications and Allergies Home Medications Medication Instructions Recorded Confirmed Type No Known Home Medications 12/02/20 12/02/20 History Allergies Allergy/AdvReac Type Severity Reaction Status Date / Time No Known Allergies Allergy Verified 12/02/20 18:58 Surgical - Exam Vital Signs Temp Pulse Resp BP Pulse Ox 97.6 F 64 18 101/72 91 L 12/02/20 16:34 12/02/20 16:34 12/02/20 16:34 12/02/20 16:34 12/02/20 16:34 - General Mild distressed with her breathing. no pain, cachectic, chronically ill - Eyes PERRL, normal ocular movement - ENT normal pinna, normal nares, normal mucosa, no hearing loss, no congestion - Neck no bruits, trachea midline, no venous distension - Respiratory Lung sounds essentially diminished throughout, scattered crackles to her right lower lobe. No wheezes or rhonchi. Respirations are symmetrical and mildly labored. 2 L nasal cannula with oxygen saturations 96%. - Cardiovascular Regular rhythm and tachycardic rate. S1 and S2 present, negative for S3, gallop or murmur. +1 edema to her bilateral lower extremities. - Abdomen abdomen is soft, nontender and nondistended. Active bowel sounds present all 4 abdominal quadrants. No guarding or rigidity. - Genitourinary Deferred - Rectum deferred - Integumentary Skin is warm and dry. Pale in color. no rash, no growths - Neurologic Cranial nerves II through XII intact. No focal or motor deficits. - Musculoskeletal Moves all 4 extremities appropriately. - Psychiatric Whispers when speaks oriented to time, oriented to person, oriented to place, memory intact Results - Labs 12/02/20 17:07 12/02/20 17:07 Abnormal Lab Results - Last 24 Hours (Table) 12/02/20 12/02/20 Range/Units 17:07 17:07 Lymphocytes # 0.3 L (1.0-4.8) k/uL BUN 31 H (7-17) mg/dL Glucose 111 H (74-99) mg/dL AST 63 H (14-36) U/L ALT 58 H (4-34) U/L Total Protein 5.8 L (6.3-8.2) g/dL Albumin 3.1 L (3.5-5.0) g/dL Diabetes panel 12/02/20 Range/Units 17:07 Sodium 140 (137-145) mmol/L Potassium 4.7 (3.5-5.1) mmol/L Chloride 104 (98-107) mmol/L Carbon Dioxide 29 (22-30) mmol/L BUN 31 H (7-17) mg/dL Creatinine 0.70 (0.52-1.04) mg/dL Glucose 111 H (74-99) mg/dL Calcium 8.8 (8.4-10.2) mg/dL AST 63 H (14-36) U/L ALT 58 H (4-34) U/L Alkaline Phosphatase 121 (38-126) U/L Total Protein 5.8 L (6.3-8.2) g/dL Albumin 3.1 L (3.5-5.0) g/dL Calcium panel 12/02/20 Range/Units 17:07 Calcium 8.8 (8.4-10.2) mg/dL Albumin 3.1 L (3.5-5.0) g/dL Pituitary panel 12/02/20 Range/Units 17:07 Sodium 140 (137-145) mmol/L Potassium 4.7 (3.5-5.1) mmol/L Chloride 104 (98-107) mmol/L Carbon Dioxide 29 (22-30) mmol/L BUN 31 H (7-17) mg/dL Creatinine 0.70 (0.52-1.04) mg/dL Glucose 111 H (74-99) mg/dL Calcium 8.8 (8.4-10.2) mg/dL Adrenal panel 12/02/20 Range/Units 17:07 Sodium 140 (137-145) mmol/L Potassium 4.7 (3.5-5.1) mmol/L Chloride 104 (98-107) mmol/L Carbon Dioxide 29 (22-30) mmol/L BUN 31 H (7-17) mg/dL Creatinine 0.70 (0.52-1.04) mg/dL Glucose 111 H (74-99) mg/dL Calcium 8.8 (8.4-10.2) mg/dL Total Bilirubin 0.5 (0.2-1.3) mg/dL AST 63 H (14-36) U/L ALT 58 H (4-34) U/L Alkaline Phosphatase 121 (38-126) U/L Total Protein 5.8 L (6.3-8.2) g/dL Albumin 3.1 L (3.5-5.0) g/dL - Imaging Chest x-ray: report reviewed, image reviewed Assessment and Plan Assessment: 1. Recurrent bilateral pleural effusions 2. Metastatic stage IV breast cancer 3. Malnutrition Plan: The patient was seen and examined at her bedside on the oncology unit by Dr. Laura Foote. Her chart and diagnostics reviewed. Treatment options were discussed with the patientand the patients sister by Dr. Foote. At this time the patient wishes to proceed with a ultrasound-guided thoracentesis due to her dyspnea and she is seeking more of an immediate relief of her symptoms. We may consider a computed tomography scan without contrast of her chest over the weekend. Awaiting treatment recommendations from oncology as the patient sister reports they are waiting to find out if the patient is a candidate for immunotherapy. Further discussions for Pleurx catheter placement will be had with the patient over the weekend. Medical management per primary care service recommendations. Thank you Dr. Morrow for this consult and we look forward to working with you in the care of this patient. Time with Patient: Greater than 30
--- NOTE | 2020-12-04 06:54 | HP ---
HISTORY AND PHYSICAL A 70-year-old white female admitted for breast cancer diagnosed 2013 and ignored for 7 years and she has had some treatment since then with Dr. Mccormick. Genetic testing is positive for BRCA gene mutation and started on Xeloda in 2018. She then March 2020. On April 14, 2020 revealed diffuse brain metastases, completed whole-brain radiation. She has significant improvement on 05/10/2020 of the cancer of her chest. On 06/29/2020 repeat brain MRI with significant improvement. Further palliative XRT of the right breast in July 2020. On 09/03/[address] scan chest, abdomen, pelvis, very slight increase in size of lung nodules. ALLERGIES: No known drug allergies. SOCIAL HISTORY: Lives with daughter. No smoking. No alcohol or drugs. PHYSICAL EXAMINATION: Temperature 97, blood pressure 101 to 120s over 70 to 79, O2 is 91-94 on room air, respiratory 16 to 18. Cardiovascular S1, S2. Lungs clear. Psych, she whispers. Hematology negative Homans. LABS: Labs were reviewed. Chest x-ray reviewed. ASSESSMENT: 1. Related pleural effusion. 2. Metastatic breast cancer. 3. Status post paracentesis of the left lung. Overall prognosis will be discussed with Dr. Mccormick and her tumor marker for possible treatment. Possible swallow eval will have to be ordered for her. To get another thoracentesis on Sunday. General surgery by . This patient is going to think about chemotherapy. Nutrition, performance pattern, decrease pleural effusions over the weekend and on Sunday to reevaluate for potential chemo Sunday. MMODL / IJN: [id number] /
--- NOTE | 2020-12-04 07:56 | XR ---
EXAMINATION TYPE: XR chest 1V portable DATE OF EXAM: 12/04/2020 COMPARISON: 12/03/2020 INDICATION: Pleural effusions TECHNIQUE: Single frontal view of the chest is obtained. FINDINGS: The heart size is indistinct. The pulmonary vasculature is normal. There is a moderate left pleural effusion. Small right pleural effusion has developed. IMPRESSION: 1. Stable left pleural effusion. 2. Developing small right pleural effusion
[2020-12-04 08:29] VITALS: BMI 19.5
--- NOTE | 2020-12-04 12:51 | P.PN ---
Subjective Progress Note Date: 12/04/20 Principal diagnosis: Recurrent bilateral pleural effusions. Past medical history significant for metastatic breast cancer which was diagnosed round 2009 according to the patient. Her genetic testing was positive for BRCA1. According to the patient's sister who is present at her bedside and ignored the breast cancer and did not seek treatment. The patient was seen in follow-up today 12/04/2020 at her bedside on the fifth floor oncology unit. Currently she is sitting up to the bedside chair, is awake, alert and oriented 3. She reports that she feels much improved today in regards to her breathing and feels that her voice is also somewhat improved as well. She underwent an ultrasound-guided thoracentesis on her right side yesterday performed by interventional radiology with approximately 1.3 L of serous fluid drained. A repeat chest x-ray was completed this morning and the report demonstrates a stable left pleural effusion and a developing small right pleural effusion. Risks and benefits of Pleurx catheter placement was discussed with the patient yesterday by Dr. Karlos Foote and the patient wishes to proceed with Pleurx catheter placement on 12/06/2020. Objective - Vital Signs Vital signs: Vital Signs Temp 97.4 F L 12/04/20 11:36 Pulse 82 12/04/20 11:36 Resp 18 12/04/20 11:36 BP 109/73 12/04/20 11:36 Pulse Ox 100 12/04/20 11:36 Intake & Output 12/03/20 12/04/20 12/04/20 18:59 06:59 18:59 Intake Total 50 250 Balance 50 250 Weight 43.998 kg Intake: Intake, IV Titration 50 Amount Dextrose 5%-0.9% NaCl 1, 50 000 ml @ 50 mls/hr IV . Q20H CARLEEN Rx#:[id number] Oral 250 Other: Voiding Method Toilet # Voids 1 2 - Constitutional Constitutional Comment(s): Cachectic General appearance: Present: cooperative, no acute distress - EENT Eyes: Present: normal appearance. Absent: scleral icterus ENT: Present: hearing grossly normal - Neck Details: No JVD. - Respiratory Details: Lung sounds are essentially diminished throughout her left lobes, essentially clear to her right lobes and diminished to her right lower lobe. No wheezes, or rhonchi. Respirations are symmetrical and nonlabored. - Cardiovascular Details: Regular rhythm and rate. S1 and S2 present, negative for S3, gallop or murmur. +1 edema to her bilateral lower extremities. - Gastrointestinal Gastrointestinal Comment(s): Abdomen is soft, nontender and nondistended. Active bowel sounds present in all 4 abdominal quadrants. No guarding or rigidity. No organomegaly appreciated. - Genitourinary Genitourinary Comment(s): Continues to void. - Integumentary Integumentary Comment(s): Skin is warm and dry. No clubbing or cyanosis is present. - Neurologic Neurologic: Present: CNII-XII intact. Absent: focal deficits - Musculoskeletal Musculoskeletal: Present: generalized weakness, strength equal bilaterally - Psychiatric Psychiatric Comment(s): Flat affect. Psychiatric: Present: A&O x's 3, intact judgment & insight - Allied health notes Allied health notes reviewed: nursing - Labs CBC & Chem 7: 12/02/20 17:07 12/02/20 17:07 - Imaging and Cardiology Chest x-ray: report reviewed, image reviewed Assessment and Plan Assessment: 1. Recurrent bilateral pleural effusions status post ultrasound guided thoracentesis yesterday performed by interventional radiology 2. Metastatic stage IV breast cancer 3. Malnutrition Plan: 1. The patient is tentatively scheduled for bilateral Pleurx catheter placement on 12/06/2020 to be performed by Dr. Darek Hewitt. 2. Nothing by mouth after midnight on 12/06/2020. 3. Encourage use of her incentive spirometry 10 times every hour while awake. 4. Medical management and other comorbidities per primary care and oncology services. 5. Preoperative teaching reinforced. 6. More recommendations to follow based on patient's clinical course. Time with Patient: Greater than 30
[2020-12-04] MEDS: DEXTROSE 5%-0.9% NACL 1,000 ML IV SCH (17:40)
[2020-12-05] MEDS ORDERED: MORPHINE SULFATE 2 MG/ML SYRINGE IVP PRN (02:52)
--- NOTE | 2020-12-05 06:38 | PN ---
PROGRESS NOTE This is a 70-year-old white female, bilateral pleural effusions, metastatic breast cancer. Chest x-ray shows stable left pleural effusion, small right pleural effusion. PleurX catheter placement with Dr. Foote on Sunday. Blood pressure is 109/73, pulse 82, respiratory rate 16 to 18, temp 97.4. Cardiovascular S1-S2. Lungs decreased breath sounds. Hematology negative Homans. Psych fair mood and affect. ASSESSMENT: 1. Recurrent bilateral pleural effusions. 2. Metastatic stage IV breast cancer. 3. Malnutrition. Continue to increase her appetite. Pleural catheters. Possible immunotherapy in the near future. Hopefully discharge after catheters are placed. MMODL / IJN: [id number] /
--- NOTE | 2020-12-05 09:30 | P.PN ---
Subjective Progress Note Date: 12/05/20 Principal diagnosis: Recurrent bilateral pleural effusions. Past medical history significant for metastatic breast cancer which was diagnosed round 2009 according to the patient. Her genetic testing was positive for BRCA1. According to the patient's sister who is present at her bedside and ignored the breast cancer and did not seek treatment. The patient was seen in follow-up today 12/05/2020 at her bedside on the fifth floor oncology unit. Currently she lying in bed with her head elevated, she is awake, alert and oriented 3. She reports that she is having some pain to her posterior chest rating her pain 3 out of 10 and reports her breathing is about the same as yesterday. Oxygen saturations are 99% on 2 L nasal cannula. He is only able to achieve 250 mL on her incentive spirometry of encouragement. She is tentatively scheduled for bilateral Pleurx placement tomorrow 12/06/2020. Preoperative teaching was reinforced with the patient and her sister present at her bedside, questions were answered to the best of my ability. She does report this morning that she is having some difficulty swallowing. Objective - Vital Signs Vital signs: Vital Signs Temp 97.5 F L 12/05/20 05:00 Pulse 82 12/05/20 05:00 Resp 16 12/05/20 05:00 BP 101/63 12/05/20 05:00 Pulse Ox 99 12/05/20 05:00 Intake & Output 12/04/20 12/05/20 12/05/20 18:59 06:59 18:59 Intake Total 400 600 Balance 400 600 Weight 43.998 kg Intake: Intake, IV Titration 400 600 Amount Dextrose 5%-0.9% NaCl 1, 400 600 000 ml @ 50 mls/hr IV . Q20H [facility] Rx#:[id number] Other: Voiding Method Toilet # Voids 2 - Constitutional Constitutional Comment(s): Cachectic General appearance: Present: cooperative, no acute distress - EENT Eyes: Present: normal appearance. Absent: scleral icterus ENT: Present: hearing grossly normal - Neck Details: No JVD. - Respiratory Details: Lung sounds essentially diminished to her left lobes, essentially clear to her right upper lobe, diminished to her right lower lobe. Respirations are symm etrical and nonlabored. Oxygen saturation 99% on 2 L nasal cannula. Achieving 250 mL on her incentive spirometry with much encouragement. - Cardiovascular Details: Regular rhythm and rate. S1 and S2 present, negative for S3, gallop or murmur. - Gastrointestinal Gastrointestinal Comment(s): Abdomen is soft, nontender and nondistended. Active bowel sounds present in all 4 abdominal quadrants. No guarding or rigidity. - Genitourinary Genitourinary Comment(s): Continues to void. - Integumentary Integumentary Comment(s): Skin is warm and dry. No clubbing or cyanosis is present. - Neurologic Neurologic: Present: CNII-XII intact. Absent: focal deficits - Musculoskeletal Musculoskeletal: Present: generalized weakness, strength equal bilaterally - Psychiatric Psychiatric Comment(s): Flat affect. Psychiatric: Present: A&O x's 3, intact judgment & insight - Allied health notes Allied health notes reviewed: nursing - Labs CBC & Chem 7: 12/02/20 17:07 12/02/20 17:07 Assessment and Plan Assessment: 1. Recurrent bilateral pleural effusions status post ultrasound guided thoracentesis 12/03/2020 performed by interventional radiology 2. Metastatic stage IV breast cancer 3. Malnutrition Plan: 1. The patient is tentatively scheduled for bilateral Pleurx catheter placement on 12/06/2020 to be performed by Dr. Darek Hewitt. 2. Nothing by mouth after midnight. 3. Encourage use of her incentive spirometry 10 times every hour while awake. 4. Medical management and other comorbidities per primary care and oncology ser vices. 5. Preoperative teaching reinforced. 6. Acetaminophen 650 mg by mouth every 6 hours when necessary pain. 7. Warm packs to her back for comfort. 8. More recommendations to follow based on patient's clinical course. Time with Patient: Greater than 30
--- NOTE | 2020-12-05 13:08 | PN ---
PROGRESS NOTE [age]-year-old white female who is on Tylenol and cefazolin. She is supposed to get a Dobbhoff tube today for feeding. She does not want, we discontinued that. She is supposed to get some Pleuradex tube placed tomorrow. She is going to stay on oral protein drinks until then, so she is refusing a feeding tube. She wants to be made DNR. Discussed with her going on Lasix, low-dose Lasix IV if she needed for her breathing. If her breathing gets worse today. She is on the lungs from the breast cancer. On 2 L she is at 99, temp 97.5, pulse 82, respiratory 16 to 18. Cardiovascular: S1-S2. LUNGS appear clear. PSYCH: She appears anxious. She whispers her answers. Discussed the case with the daughter and her. ASSESSMENT: 1. Breast cancer. 2. Pleural effusions. 3. Malnutrition. Treatment as above. Possible Pleuradex catheters in the morning. MMODL / IJN: [id number] /
[2020-12-05] MEDS: ACETAMINOPHEN TAB 325 MG TAB PO PRN (14:46)
[2020-12-05] MEDS ORDERED: FUROSEMIDE 10 MG/ML 2 ML VIAL IV ONE (15:03)
[2020-12-05] MEDS: DEXTROSE 5%-0.9% NACL 1,000 ML IV SCH (16:33)
--- NOTE | 2020-12-05 21:29 | P.PN ---
Subjective Progress Note Date: 12/05/20 Principal diagnosis: Recurrent bilateral pleural effusion due to metastatic stage IV breast cancer Left more than the right side Malignant pleural effusion Metastatic breast cancer stage IV Protein calorie malnourishment mild to moderate severity Ongoing shortness of breath 12/05/2020, patient seen eval examined during the rounds short of breath on 2 L nasal cannula, patient had the right-sided thoracentesis is 1.3 L of fluid has been removed, patient is scheduled for bilateral Pleurx catheter placement tomorrow by cardiothoracic surgery, care plan discussed with sister and patient at length This is a 70-year-old female seen eval reexamined on fourth fifth floor oncology unit, patient came into the hospital with progressive shortness of breath, patient had the thoracentesis on the right side as well as the left side on and 22 of November 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, patient has a history of the metastatic stage IV breast cancer diagnosed about 12 years ago, patient has been on chemotherapy in the past was stopped as has been nonresponding, patient has a progressive pleural effusion bilaterally which was tapped recently came back positive for cancer, due to recurrence of problem and hypoxia came into the hospital, he denies any chest pain denies any cough or sputum production denies any night sweat chills of fever Objective - Vital Signs Vital signs: Vital Signs Temp 97.4 F L 12/05/20 20:57 Pulse 83 12/05/20 20:57 Resp 18 12/05/20 20:57 BP 112/70 12/05/20 20:57 Pulse Ox 98 12/05/20 20:57 Intake & Output 12/05/20 12/05/20 12/06/20 06:59 18:59 06:59 Intake Total 600 520 Balance 600 520 Intake: Intake, IV Titration 600 500 Amount Dextrose 5%-0.9% NaCl 1, 600 500 000 ml @ 50 mls/hr IV . Q20H [facility] Rx#:[id number] Oral 20 Other: Voiding Method Toilet # Voids 2 - Exam - Constitutional General appearance: average body habitus, cooperative, disheveled, mild distress - EENT Eyes: PERRLA Ears: bilateral: normal - Neck Carotids: bilateral: upstroke normal Thyroid: bilateral: normal size - Respiratory Respiratory: bilateral: diminished (Dullness to percussion more so on the left side compared to right side) - Cardiovascular Rhythm: regular Heart sounds: normal: S1, S2 - Gastrointestinal General gastrointestinal: soft - Musculoskeletal Musculoskeletal: gait normal, generalized weakness, strength equal bilaterally - Psychiatric Psychiatric: A&O x's 3, appropriate affect, intact judgment & insight - Labs CBC & Chem 7: 12/02/20 17:07 12/02/20 17:07 Assessment and Plan Assessment: Recurrent bilateral pleural effusion due to metastatic stage IV breast cancer Left more than the right side Malignant bilateral pleural effusion Metastatic breast cancer stage IV Protein calorie malnourishment mild to moderate severity Ongoing shortness of breath Acute on chronic hypoxic respiratory failure due to advanced breast cancer and malignant pleural effusion Plan: Continue supplemental oxygen, options discussed with them about Pleurx catheter bilateral Pleurx catheter in the morning by cardiothoracic surgery Time with Patient: Greater than 30
[2020-12-06] MEDS: DEXTROSE 5%-0.9% NACL 1,000 ML IV SCH (05:38)
[2020-12-06 11:19] LABS: Basophils % (A) 0 %; Eosinophils % (A) 0 %; HCT 43.5 % (34.0-46.0); HGB 13.4 gm/dL (11.4-16.0); Hypochromasia Moderate; Lymphocytes # (A) 0.2 k/uL (1.0-4.8); Lymphocytes % (A) 3 %; MCH 30.4 pg (25.0-35.0); MCHC 30.7 g/dL (31.0-37.0); MCV 99.2 fL (80.0-100.0); Macrocytosis Slight; Mean Platelet Volume 8.1; Monocytes # (A) 0.3 k/uL (0-1.0); Monocytes % (A) 5 %; Neutrophils # (A) 6.6 k/uL (1.3-7.7); Neutrophils % (A) 92 %; Platelet Count 314 k/uL (150-450); RBC 4.39 m/uL (3.80-5.40); RDW 14.9 % (11.5-15.5); WBC 7.2 k/uL (3.8-10.6)
[2020-12-06 11:33] LABS: ALT 56 U/L (4-34); AST 55 U/L (14-36); African American GFR (CKD) >90 (>60 ml/min/1.73 sqM); Albumin 2.4 g/dL (3.5-5.0); Alkaline Phosphatase 119 U/L (38-126); Anion Gap 4 mmol/L; Blood Urea Nitrogen 16 mg/dL (7-17); Calcium 7.8 mg/dL (8.4-10.2); Carbon Dioxide 31 mmol/L (22-30); Chloride 107 mmol/L (98-107); Globulin 2.4 g/dL; Glucose 166 mg/dL (74-99); Magnesium 2.1 mg/dL (1.6-2.3); Non-African American GFR(CKD) >90 (>60 ml/min/1.73 sqM); Potassium 4.9 mmol/L (3.5-5.1); Sodium 142 mmol/L (137-145); Total Bilirubin 0.3 mg/dL (0.2-1.3); Total Protein 4.8 g/dL (6.3-8.2)
--- NOTE | 2020-12-06 13:25 | XR ---
EXAMINATION TYPE: XR chest 1V portable DATE OF EXAM: 12/06/2020 Comparison: 12/04/2020 Clinical History: 70-year-old female pre-op pleurx catheter(s) Findings: Moderate to large left pleural effusion persists. Moderate right pleural effusion persists. Heart mar gin is largely obscured by adjacent pleural parenchymal opacity. Possible sclerotic lesions of the L2 vertebral body. Impression: Continued moderate to large left and moderate right pleural effusions with adjacent atelectasis and/o r consolidation.
[2020-12-06] MEDS ORDERED: LACTATED RINGERS 1,000 ML IV ONE (13:29)
[2020-12-06] MEDS ORDERED: LIDOCAINE 1% INJ 10MG/ML (10 ML MDV) SQ ONE ×2 (13:57)
[2020-12-06] MEDS ORDERED: fentaNYL (PF) 50 MCG/ML 2 ML AMP ONE (14:29)
[2020-12-06] MEDS ORDERED: MIDAZOLAM 2 MG/2 ML VIAL ONE (14:29)
--- NOTE | 2020-12-06 14:47 | P.GSCN ---
History of Present Illness Consult date: 12/06/20 History of present illness: CHIEF COMPLAINT: Shortness of breath HISTORY OF PRESENT ILLNESS: This is a 70-year-old female with a known history of metastatic breast cancer. Patient has had recurrent malignant pleural effusions due to her breast cancer. She has required a right thoracentesis during this admission. She's had prior thoracentesis completed. She is scheduled for bilateral Pleurx catheter placement by cardiothoracic surgery today. Patient is also scheduled for a swallow evaluation later today. Surgical consult was placed for Dobbhoff tube insertion for nutrition support. Patient's sister is at the bedside. At this time both the patient and sister are not interested in any Dobbhoff tube for nutrition support. PAST MEDICAL HISTORY: See list. PAST SURGICAL HISTORY: See list. MEDICATIONS: See list. ALLERGIES: See list. SOCIAL HISTORY: No illicit drug use. REVIEW OF SYSTEMS: CONSTITUTIONAL: Denies fever or chills. HEENT: Denies blurred vision, vision changes, or eye pain. Denies hemoptysis CARDIOVASCULAR: Denies chest pain or pressure. RESPIRATORY: No shortness of breath. GASTROINTESTINAL: See HPI for pertinent findings HEMATOLOGIC: Denies bleeding disorders. GENITOURINARY: Denies any blood in urine or increased urinary frequency. SKIN: Denies pruitis. Denies rash. PHYSICAL EXAM: VITAL SIGNS: Reviewed GENERAL: Well-developed in no acute distress. HEENT: No sclera icterus. Extraocular movements grossly intact. Moist buccal mucosa. Head is atraumatic, normocephalic. No nasal drainage. ABDOMEN: Soft. Nondistended. Nontender NEUROLOGIC: Alert and oriented. Cranial nerves II through XII grossly intact. LABORATORY DATA: WBC 7.2 creatinine 0.56 albumin 2.4 IMAGING: Chest x-ray shows continued moderate to large left and moderate right pleural effusions with adjacent atelectasis and/or consolidation ASSESSMENT: 1. Severe protein calorie malnutrition 2. Metastatic breast cancer stage IV 3. Recurrent bilateral pleural effusions secondary to the metastatic breast cancer. Patient scheduled for bilateral Pleurx catheter placement today PLAN: -Continue supportive care -At this time patient is refusing Dobbhoff tube insertion -We'll continue to follow along with you Thank you for this consultation Physician Suction Worker note has been reviewed by physician. Signing provider agrees with the documented findings, assessment, and plan of care. Past Medical History Past Medical History: Cancer Additional Past Medical History / Comment(s): L &R Breast Cancer with mets to bone, brain and lungs - brain radiation, bilateral lung thoracentesis History of Any Multi-Drug Resistant Organisms: None Reported Past Surgical History: Breast Surgery Additional Past Surgical History / Comment(s): breast biopsies, lymph node biopsy "+" 2016, lung biopsy. Past Anesthesia/Blood Transfusion Reactions: No Reported Reaction Past Psychological History: No Psychological Hx Reported Smoking Status: Never smoker Past Alcohol Use History: None Reported Past Drug Use History: None Reported - Past Family History Mother Family Medical History: No Reported History Medications and Allergies Home Medications Medication Instructions Recorded Confirmed Type No Known Home Medications 12/02/20 12/02/20 History Allergies Allergy/AdvReac Type Severity Reaction Status Date / Time No Known Allergies Allergy Verified 12/02/20 18:58 Surgical - Exam Vital Signs Temp Pulse Resp BP Pulse Ox 97.6 F 64 18 101/72 91 L 12/02/20 16:34 12/02/20 16:34 12/02/20 16:34 12/02/20 16:34 12/02/20 16:34 Results - Labs 12/06/20 10:22 12/06/20 10:22 Abnormal Lab Results - Last 24 Hours (Table) 12/06/20 12/06/20 Range/Units 10:22 10:22 MCHC 30.7 L (31.0-37.0) g/dL Lymphocytes # 0.2 L (1.0-4.8) k/uL Carbon Dioxide 31 H (22-30) mmol/L Glucose 166 H (74-99) mg/dL Calcium 7.8 L (8.4-10.2) mg/dL AST 55 H (14-36) U/L ALT 56 H (4-34) U/L Total Protein 4.8 L (6.3-8.2) g/dL Albumin 2.4 L (3.5-5.0) g/dL Diabetes panel 12/06/20 Range/Units 10:22 Sodium 142 (137-145) mmol/L Potassium 4.9 (3.5-5.1) mmol/L Chloride 107 (98-107) mmol/L Carbon Dioxide 31 H (22-30) mmol/L BUN 16 (7-17) mg/dL Creatinine 0.56 (0.52-1.04) mg/dL Glucose 166 H (74-99) mg/dL Calcium 7.8 L (8.4-10.2) mg/dL AST 55 H (14-36) U/L ALT 56 H (4-34) U/L Alkaline Phosphatase 119 (38-126) U/L Total Protein 4.8 L (6.3-8.2) g/dL Albumin 2.4 L (3.5-5.0) g/dL Calcium panel 12/06/20 Range/Units 10:22 Calcium 7.8 L (8.4-10.2) mg/dL Albumin 2.4 L (3.5-5.0) g/dL Pituitary panel 12/06/20 Range/Units 10:22 Sodium 142 (137-145) mmol/L Potassium 4.9 (3.5-5.1) mmol/L Chloride 107 (98-107) mmol/L Carbon Dioxide 31 H (22-30) mmol/L BUN 16 (7-17) mg/dL Creatinine 0.56 (0.52-1.04) mg/dL Glucose 166 H (74-99) mg/dL Calcium 7.8 L (8.4-10.2) mg/dL Adrenal panel 12/06/20 Range/Units 10:22 Sodium 142 (137-145) mmol/L Potassium 4.9 (3.5-5.1) mmol/L Chloride 107 (98-107) mmol/L Carbon Dioxide 31 H (22-30) mmol/L BUN 16 (7-17) mg/dL Creatinine 0.56 (0.52-1.04) mg/dL Glucose 166 H (74-99) mg/dL Calcium 7.8 L (8.4-10.2) mg/dL Total Bilirubin 0.3 (0.2-1.3) mg/dL AST 55 H (14-36) U/L ALT 56 H (4-34) U/L Alkaline Phosphatase 119 (38-126) U/L Total Protein 4.8 L (6.3-8.2) g/dL Albumin 2.4 L (3.5-5.0) g/dL
--- NOTE | 2020-12-06 15:31 | P.PN ---
Subjective Progress Note Date: 12/06/20 (Late entry note) Principal diagnosis: Recurrent bilateral pleural effusion due to metastatic stage IV breast cancer Left more than the right side Malignant pleural effusion Metastatic breast cancer stage IV Protein calorie malnourishment mild to moderate severity Ongoing shortness of breath 12/06/2020, patient seen eval examined during the rounds labs reviewed medications reviewed care plan discussed, patient is for bilateral Pleurx catheter placement later on today by cardiothoracic surgery 12/05/2020, patient seen eval examined during the rounds short of breath on 2 L nasal cannula, patient had the right-sided thoracentesis is 1.3 L of fluid has been removed, patient is scheduled for bilateral Pleurx catheter placement tomorrow by cardiothoracic surgery, care plan discussed with sister and patient at length This is a 70-year-old female seen eval reexamined on fourth fifth floor oncology unit, patient came into the hospital with progressive shortness of breath, patient had the thoracentesis on the right side as well as the left side on and 22 of November 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, patient has a history of the metastatic stage IV breast cancer diagnosed about 12 years ago, patient has been on chemotherapy in the past was stopped as has been nonresponding, patient has a progressive pleural effusion bilaterally which was tapped recently came back positive for cancer, due to recurrence of problem and hypoxia came into the hospital, he denies any chest pain denies any cough or sputum production denies any night sweat chills of fever Objective - Vital Signs Vital signs: Vital Signs Temp 96.9 F L 12/06/20 14:25 Pulse 104 H 12/06/20 15:00 Resp 22 12/06/20 15:00 BP 113/69 12/06/20 15:00 Pulse Ox 98 12/06/20 15:00 Intake & Output 12/05/20 12/06/20 12/06/20 18:59 06:59 18:59 Intake Total 520 600 150 Output Total 3005 Balance 520 600 -2855 Weight 43.998 kg Intake: IV 150 Intake, IV Titration 500 600 Amount Dextrose 5%-0.9% NaCl 1, 500 600 000 ml @ 50 mls/hr IV . Q20H [facility] Rx#:[id number] Oral 20 Output: Pleural Fluid 3000 Estimated Blood Loss 5 Other: Voiding Method Toilet Toilet # Voids 2 - Exam - Constitutional General appearance: average body habitus, cooperative, disheveled, mild distress - EENT Eyes: PERRLA Ears: bilateral: normal - Neck Carotids: bilateral: upstroke normal Thyroid: bilateral: normal size - Respiratory Respiratory: bilateral: diminished (Dullness to percussion more so on the left side compared to right side) - Cardiovascular Rhythm: regular Heart sounds: normal: S1, S2 - Gastrointestinal General gastrointestinal: soft - Musculoskeletal Musculoskeletal: gait normal, generalized weakness, strength equal bilaterally - Psychiatric Psychiatric: A&O x's 3, appropriate affect, intact judgment & insight - Labs CBC & Chem 7: 12/06/20 10:22 12/06/20 10:22 Labs: Abnormal Lab Results - Last 24 Hours (Table) 12/06/20 12/06/20 Range/Units 10:22 10:22 MCHC 30.7 L (31.0-37.0) g/dL Lymphocytes # 0.2 L (1.0-4.8) k/uL Carbon Dioxide 31 H (22-30) mmol/L Glucose 166 H (74-99) mg/dL Calcium 7.8 L (8.4-10.2) mg/dL AST 55 H (14-36) U/L ALT 56 H (4-34) U/L Total Protein 4.8 L (6.3-8.2) g/dL Albumin 2.4 L (3.5-5.0) g/dL Assessment and Plan Assessment: Recurrent bilateral pleural effusion due to metastatic stage IV breast cancer Left more than the right side Malignant bilateral pleural effusion Metastatic breast cancer stage IV Protein calorie malnourishment mild to moderate severity Ongoing shortness of breath Acute on chronic hypoxic respiratory failure due to advanced breast cancer and malignant pleural effusion Plan: Continue supplemental oxygen, options discussed with them about Pleurx catheter bilateral Pleurx catheter by cardiothoracic surgery Time with Patient: Greater than 30
--- NOTE | 2020-12-06 15:43 | XR ---
EXAMINATION TYPE: XR chest 1V portable DATE OF EXAM: 12/06/2020 Comparison: Earlier today Clinical History: 70-year-old female post Pleurx placement Findings: Right-sided Pleurx catheter has been placed. Trace right effusion remains. There is 3.2 cm pleural-ba sed nodule lateral right midlung. Heart normal size. No cardial mediastinal shift seen. Left-sided Pleurx catheter has been placed. There is a moderate sized, probably 40% pneumothorax on t he left. This measures approximately 4.1 cm along the peripheral left basilar aspect and 2.5 cm at th e left apex. Hazy underlying left basilar density suggests residual small effusion. Impression: 1. Interval placement of right Pleurx catheter. Most of the effusion on the right has been drained. A small effusion and 3.2 cm pleural-based nodularity remains at the periphery of the right mid lung. 2. Interval placement of left Pleurx catheter. Residual small pleural effusion remains. However, ther e is also a moderate-sized pneumothorax estimated at 40% measuring up to 4.1 cm at the peripheral bas e and 2.5 cm at the apex. No cardiomediastinal shift seen at this time.
--- NOTE | 2020-12-06 16:17 | P.OP ---
Date of Procedure: 12/06/20 Preoperative Diagnosis: breast cancer, bilateral recurrent malignant pleural effusions Postoperative Diagnosis: same Procedure(s) Performed: bilateral Pleurx catheter implantation with fluoroscopic guidance Implants: bilateral Pleurx catheters Anesthesia: MAC Surgeon: Darek Hewitt Estimated Blood Loss (ml): 5 IV fluids (ml): 100 Urine output (ml): 0 Pathology: none sent Condition: stable Disposition: PACU Indications for Procedure: 70-year-old female with previous left mastectomy and widely metastatic breast cancer presents dyspneic and with difficulty swallowing. She has significant adenopathy around her trachea and esophagus making it difficult to swallow. She has significant bilateral pleural effusions which were drained initially 2 weeks ago and then again drained last week. Bilateral pleural effusions persist. Bilateral Pleurx catheter was indicated for palliation. Operative Findings: nd no difficulty accessing the pleural spaces bilaterally. Serous fluid was present on both sides. 1 L was drained from the right and 2 L were drained from the left. Description of Procedure: he patient was brought to the operating room and placed supine on the operating table. She was having difficulty breathing and was sat up on the operating table. The lower chest and upper abdomen were sterilely prepped and draped bilaterally. 2% lidocaine anesthesia was used in IV sedation was given. We began with a puncture on the right side pleural fluid at about the seventh interspace. Guidewire was threaded into the chest and confirmed confirmed present in the pleural space on fluoroscopy. Puncture site was enlarged to just over a centimeter and a less than 1 cm counterincision was made in the right upper quadrant. Pleurx catheter was tunneled from thecounterincision in the right upper quadrant to the puncture site incision. Subcutaneous cuff was positioned just under the skin at the exit site in the right upper quadrant. In troducer and dilator were placed over the guidewire under fluoroscopic guidance and through the introducer sheath the Pleurx catheter was tunneled into the right pleural space. Introducer sheath was removed. Purse catheter was connected to suction and a liter of serous fluid was drained. Catheter was secured at the exit site with a 2-0 silk suture. The entry site was closed with a 4-0 Vicryl subcuticular stitch. We now obtained access on the left. Guidewire was threaded into the left chest under fluoroscopic guidance. The puncture site was enlarged to just over a centimeter and a counterincision was made in the left upper quadrant. Pleurx catheter was tunneled from the exit site to the entry site and thesubcutaneous cuff positioned under the skin. Introducer dilator were placed over the wire into the pleural space and through the introducer sheath the Pleurx catheter was threaded into the left pleural space. Introducer sheath was removed. Catheter was connected to suction and 2 L of fluid were drained. Entry site was closed with a 3-0 Vicryl subcuticular stitch and the catheter secured at the exit site with a3-0 silk suture. Both entry sites were now dressed with skin glue and Band-Aids. Purse catheters were capped and placed in appropriate Pleurx dressings. Appropriate placement of the catheters was assured with fluoroscopy. Drapes were removed and the patient was transferred to recovery in stable condition.
--- NOTE | 2020-12-06 16:51 | FL ---
Fluoroscopy HISTORY: Pleural effusions 30 seconds fluoroscopy time supplied to the referring clinician. 2 intraoperative C-arm images docum ent the procedure. See dictated report from cardiothoracic surgery.
[2020-12-06] MEDS: ACETAMINOPHEN TAB 325 MG TAB PO PRN (18:42)
[2020-12-06] MEDS ORDERED: HYDROcodone/APAP 15 ML SOLUTION PO PRN (20:07)
--- NOTE | 2020-12-06 20:07 | P.PN ---
Subjective Progress Note Date: 12/06/20 Objective - Vital Signs Vital signs: Vital Signs Temp 97.5 F L 12/06/20 15:25 Pulse 108 H 12/06/20 18:10 Resp 17 12/06/20 15:40 BP 90/58 12/06/20 18:10 Pulse Ox 98 12/06/20 15:25 Intake & Output 12/06/20 12/06/20 12/07/20 06:59 18:59 06:59 Intake Total 600 850 Output Total 3005 Balance 600 -2155 Weight 43.998 kg Intake: IV 250 Intake, IV Titration 600 600 Amount Dextrose 5%-0.9% NaCl 1, 600 600 000 ml @ 50 mls/hr IV . Q20H [facility] Rx#:[id number] Output: Pleural Fluid 3000 Estimated Blood Loss 5 Other: Voiding Method Toilet Toilet # Voids 2 - Exam - Constitutional General appearance: cooperative, mild distress - EENT Eyes: dentition normal ENT: NA/AT - Neck Neck: lymphadenopathy - Respiratory Respiratory: bilateral: diminished (Increased effort) - Cardiovascular Rhythm: regular leg Peripheral Edema: bilateral: Trace - Gastrointestinal General gastrointestinal: soft - Integumentary Integumentary: pale - Neurologic non-focal - Musculoskeletal Musculoskeletal: generalized weakness, strength equal bilaterally - Psychiatric Psychiatric: A&O x's 3, appropriate affect - Labs CBC & Chem 7: 12/06/20 10:22 12/06/20 10:22 Labs: Abnormal Lab Results - Last 24 Hours (Table) 12/06/20 12/06/20 Range/Units 10:22 10:22 MCHC 30.7 L (31.0-37.0) g/dL Lymphocytes # 0.2 L (1.0-4.8) k/uL Carbon Dioxide 31 H (22-30) mmol/L Glucose 166 H (74-99) mg/dL Calcium 7.8 L (8.4-10.2) mg/dL AST 55 H (14-36) U/L ALT 56 H (4-34) U/L Total Protein 4.8 L (6.3-8.2) g/dL Albumin 2.4 L (3.5-5.0) g/dL Assessment and Plan (1) Malignant pleural effusion Current Visit: Yes Status: Acute Code(s): J91.0 - MALIGNANT PLEURAL EFFUSION SNOMED Code(s): 541316559 (2) Metastatic breast cancer Current Visit: Yes Status: Acute Code(s): C50.919 - MALIGNANT NEOPLASM OF UNSP SITE OF UNSPECIFIED FEMALE BREAST SNOMED Code(s): 172642380 Plan: Progressed Metastatic Breast Cancer: - Progressive cancer, with her primary symptoms being secondary to her cancer, option of low dose chemo for symotom control versus home with hospice. Both appropriate choices, patient and sister given benefits and risks of both scenarios. Discussed with primary oncologist and Dr. Mccormick as asked for Taxol 80mg/m2 if patient chooses to pursue chemotherapy as inpatient. Recurrent Malignant Pleural effusion: - New Progression, although decreasing performance status and prior multiple lines of therapy - Plan for PLeurex drains for Comfort measures only - today - Overall Prognosis is poor, patient and sister did discuss in detail with Dr. Mccormick, if performance status improves and can control symptoms maybe able to consider targeted or immune therapy, although at this time will need to increase strength and obtain pleurex prior. Dysphagia: - Believe this is secondary to compression from cancer growth, she refuses dophoff and swallow evaluation at this time, they are fully aware of their risks and aspiration risk - COnsidering our overall treatment goal is palliative and overall outcome is poor patient and sister would like to focus on the goal of comfort and agree to monitor closely for any signs of aspiration with food (sister remains at bedside, she is a nurse practitioner) Marin-plastic Related Pain: - We will also add norco on and Lidocaine patch as she is very hesistant to ut ilize the morphine given her increased difficulty in breathinh Long discussion regarding Hospice and overall poor prognosis, patient and sister understand. They would like to try a dose of inpatient chemo to attempt to control symptoms and improve quality of life, this is resonable along with pleu schuyler. We will plan to send home with Palliative care. She will need hospital bed due to comfort from pleurex bilateral drains and decreased performance. Hospice care will be available at a low threshold if needed to convert from pallaitive.
[2020-12-06] MEDS: LIDOCAINE 5% PATCH TOPICAL SCH (20:23)
--- NOTE | 2020-12-06 22:59 | PN ---
PROGRESS NOTE This is a 70-year-old white female who had pleurodesis tubes placed today. She is able to breathe better. She had 2000 mL out of the right side, 1200 on the left side of her lungs through paracentesis, thoracentesis. CARDIOVASCULAR: S1, S2. LUNGS: Clear. GI: Soft. HEMATOLOGY: Negative Homans. ASSESSMENT: 1. Breast cancer, metastatic. 2. Malnutrition. 3. Thoracic paracentesis tubes placed. Possible discharge home on Sunday. Check labs in the morning. Maybe low-dose chemotherapy tomorrow. MMODL / IJN: [id number] /
[2020-12-07] MEDS: DEXTROSE 5%-0.9% NACL 1,000 ML IV SCH (03:54)
[2020-12-07 06:21] LABS: Basophils % (A) 0 %; Eosinophils % (A) 0 %; HCT 40.5 % (34.0-46.0); HGB 12.7 gm/dL (11.4-16.0); Hypochromasia Moderate; Lymphocytes # (A) 0.2 k/uL (1.0-4.8); Lymphocytes % (A) 3 %; MCH 30.7 pg (25.0-35.0); MCHC 31.3 g/dL (31.0-37.0); MCV 98.2 fL (80.0-100.0); Mean Platelet Volume 7.8; Monocytes # (A) 0.3 k/uL (0-1.0); Monocytes % (A) 5 %; Neutrophils # (A) 6.2 k/uL (1.3-7.7); Neutrophils % (A) 91 %; Platelet Count 255 k/uL (150-450); RBC 4.12 m/uL (3.80-5.40); RDW 14.8 % (11.5-15.5); WBC 6.8 k/uL (3.8-10.6)
[2020-12-07] MEDS: LIDOCAINE 5% PATCH TOPICAL SCH (07:45)
[2020-12-07 09:47] LABS: African American GFR (CKD) 114.5 (60.0-200.0); Albumin 2.6 g/dL (3.80-4.90); Albumin/Globulin Ratio 1.86 (1.60-3.17); Anion Gap 5.5 mmol/L (4.00-12.00); Calcium 7.4 mg/dL (8.7-10.3); Carbon Dioxide 29.5 mmol/L (21.6-31.8); Globulin 1.4 g/dL (1.6-3.3); Magnesium 1.8 mg/dL (1.5-2.4); Non-African American GFR(CKD) 98.8 (60.0-200.0); Potassium 4.8 mmol/L (3.5-5.5); Total Bilirubin 0.2 mg/dL (0.3-1.2)
--- NOTE | 2020-12-07 11:40 | P.PN ---
Subjective Progress Note Date: 12/07/20 Principal diagnosis: Recurrent bilateral malignant pleural effusions. Past medical history significant for metastatic breast cancer which was diagnosed round 2009 according to the patient. Her genetic testing was positive for BRCA1. According to the patient's sister who is present at her bedside and ignored the breast cancer and did not seek treatment. POD #1 bilateral Pleurx catheter implantation with fluoroscopic guidance. The patient was seen in follow-up today at her bedside on the fifth floor oncology unit. Currently she is lying in bed with her head elevated, is awake, alert and oriented 3. Her sister who is also a nurse practitioner is present at her bedside. Currently she denies any planes of pain and reports her breathing has much improved since having the Pleurx catheters placed yesterday. The patient reports that it is her understanding that she'll be staying 1 more day in the hospital since her palliative chemotherapy has been ordered and will be initiated today. Bedside teaching of Pleurx catheter drainage was completed with the patient and her sister with return demonstration completed. 250 mL of thin serosanguineous drainage was drained from the left Pleurx catheter and 400 mL of serous colored drainage draining from her right thorax catheter. The patient tolerated the drainage well and had some minimal discomfort to her right Pleurx catheter drainage site. Objective - Vital Signs Vital signs: Vital Signs Temp 97.5 F L 12/07/20 05:00 Pulse 71 12/07/20 09:05 Resp 18 12/07/20 05:00 BP 101/69 12/07/20 05:00 Pulse Ox 96 12/07/20 09:05 Intake & Output 12/06/20 12/07/20 12/07/20 18:59 06:59 18:59 Intake Total 850 200 Output Total 3005 650 Balance -2155 200 -650 Weight 43.998 kg Intake: IV 250 Intake, IV Titration 600 Amount Dextrose 5%-0.9% NaCl 1, 600 000 ml @ 50 mls/hr IV . Q20H [facility] Rx#:[id number] Oral 200 Output: Drainage 650 Left Chest 250 Right Chest 400 Pleural Fluid 3000 Estimated Blood Loss 5 Other: Voiding Method Toilet Toilet # Voids 2 - Constitutional Constitutional Comment(s): Cachectic General appearance: Present: cooperative, no acute distress - EENT Eyes: Present: normal appearance. Absent: scleral icterus ENT: Present: hearing grossly normal - Neck Details: No JVD. - Respiratory Details: lungs essentially clear throughout, with few scattered crackles, diminished b ilateral bases. Respirations are symmetrical and nonlabored. Oxygen saturation are 96% on 2 L nasal cannula. Bilateral Pleurx catheters, And dressings are clean dry and secured. Achieving 250 mL on her incentive spirometry with much encouragement. - Cardiovascular Details: Regular rhythm and rate. S1 and S2 present, negative for S3, gallop or murmur. Trace edema to her bilateral lower extremities. - Gastrointestinal Gastrointestinal Comment(s): Abdomen is soft, nontender and nondistended. Active bowel sounds present in all 4 abdominal quadrants. No guarding or rigidity. Tolerating oral intake. - Genitourinary Genitourinary Comment(s): Continues to void. - Integumentary Integumentary Comment(s): Skin is warm and dry. No clubbing or cyanosis is present. - Neurologic Neurologic: Present: CNII-XII intact. Absent: focal deficits - Musculoskeletal Musculoskeletal: Present: generalized weakness, strength equal bilaterally - Psychiatric Psychiatric Comment(s): Flat affect Psychiatric: Present: A&O x's 3, intact judgment & insight - Allied health notes Allied health notes reviewed: nursing - Labs CBC & Chem 7: 12/07/20 05:37 12/07/20 05:37 Labs: Abnormal Lab Results - Last 24 Hours (Table) 12/06/20 12/07/20 12/07/20 Range/Units 10:22 05:37 05:37 Lymphocytes # 0.2 L (1.0-4.8) k/uL Carbon Dioxide 31 H (22-30) mmol/L Creatinine 0.5 L (0.6-1.5) mg/dL BUN/Creatinine Ratio 34.00 H (12.00-20.00) Ratio Glucose 166 H (74-99) mg/dL Calcium 7.8 L 7.4 L (8.4-10.2) mg/dL Total Bilirubin 0.2 L (0.3-1.2) mg/dL AST 55 H 39 H (14-36) U/L ALT 56 H (4-34) U/L Total Protein 4.8 L 4.0 L (6.3-8.2) g/dL Albumin 2.4 L 2.60 L (3.5-5.0) g/dL Globulin 1.4 L (1.6-3.3) g/dL Assessment and Plan Assessment: 1. Recurrent bilateral pleural effusions status post ultrasound guided thoracentesis 12/03/2020 performed by interventional radiology, status post bilateral Pleurx catheter placement completed yesterday 12/06/2020 2. Metastatic stage IV breast cancer 3. Malnutrition Plan: 1. bilateral Pleurx catheter teaching completed at the patient's bedside with the patient and the patient's sister. Return demonstration completed by the patient's sister. 2. Okay to be discharged home when okay with primary care service and other consultants. 3. Encourage use of her incentive spirometry 10 times every hour while awake. 4. Medical management and other comorbidities per primary care and oncology services. 5. Pain management per current when necessary orders. 6. More recommendations to follow based on patient's clinical course. Time with Patient: Greater than 30
[2020-12-07] MEDS ORDERED: DEXAMETHASONE SOD PHOSPHATE 10 MG/ML 1 ML VIAL IV ONE (12:00)
[2020-12-07] MEDS ORDERED: diphenhydrAMINE 50 MG/ML 1 ML VIAL IVP ONE (12:00)
[2020-12-07] MEDS ORDERED: FAMOTIDINE 20 MG/2 ML VIAL IVP ONE (12:00)
[2020-12-07] MEDS ORDERED: PACLITAXEL IV ONE (12:00)
[2020-12-07] MEDS ORDERED: SODIUM CHLORIDE 0.9% IV ONE (12:00)
--- NOTE | 2020-12-07 12:12 | P.PN ---
Subjective Progress Note Date: 12/07/20 Principal diagnosis: Recurrent bilateral pleural effusion due to metastatic stage IV breast cancer Left more than the right side Malignant pleural effusion Metastatic breast cancer stage IV Protein calorie malnourishment mild to moderate severity Ongoing shortness of breath 12/07/2020, patient seen eval examined labs reviewed medications reviewed sitting upright on the chair nodding off, on 2 L oxygen, mild shortness of breath is present, patient is currently undergoing chemotherapy, sister is present at bedside, patient had the Pleurx evacuation 400 from the right side and 250 from the left side, tolerated well 12/06/2020, patient seen eval examined during the rounds labs reviewed medications reviewed care plan discussed, patient is for bilateral Pleurx catheter placement later on today by cardiothoracic surgery 12/05/2020, patient seen eval examined during the rounds short of breath on 2 L nasal cannula, patient had the right-sided thoracentesis is 1.3 L of fluid has been removed, patient is scheduled for bilateral Pleurx catheter placement tomorrow by cardiothoracic surgery, care plan discussed with sister and patient at length This is a 70-year-old female seen eval reexamined on fourth fifth floor oncology unit, patient came into the hospital with progressive shortness of breath, patient had the thoracentesis on the right side as well as the left side on and 22 of November 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, patient has a history of the metastatic stage IV breast cancer diagnosed about 12 years ago, patient has been on chemotherapy in the past was stopped as has been nonresponding, patient has a progressive pleural effusion bilaterally which was tapped recently came back positive for cancer, due to recurrence of problem and hypoxia came into the hospital, he denies any chest pain denies any cough or sputum production denies any night sweat chills of fever Objective - Vital Signs Vital signs: Vital Signs Temp 97.5 F L 12/07/20 05:00 Pulse 97 12/07/20 12:03 Resp 18 12/07/20 05:00 BP 95/69 12/07/20 12:03 Pulse Ox 96 12/07/20 09:05 Intake & Output 12/06/20 12/07/20 12/07/20 18:59 06:59 18:59 Intake Total 850 200 Output Total 3005 650 Balance -2155 200 -650 Weight 43.998 kg Intake: IV 250 Intake, IV Titration 600 Amount Dextrose 5%-0.9% NaCl 1, 600 000 ml @ 50 mls/hr IV . Q20H [facility] Rx#:[id number] Oral 200 Output: Drainage 650 Left Chest 250 Right Chest 400 Pleural Fluid 3000 Estimated Blood Loss 5 Other: Voiding Method Toilet Toilet # Voids 2 - Exam - Constitutional General appearance: average body habitus, cooperative, disheveled, mild distress - EENT Eyes: PERRLA Ears: bilateral: normal - Neck Carotids: bilateral: upstroke normal Thyroid: bilateral: normal size - Respiratory Respiratory: bilateral: diminished (Dullness to percussion more so on the left side compared to right side) - Cardiovascular Rhythm: regular Heart sounds: normal: S1, S2 - Gastrointestinal General gastrointestinal: soft - Musculoskeletal Musculoskeletal: gait normal, generalized weakness, strength equal bilaterally - Psychiatric Psychiatric: A&O x's 3, appropriate affect, intact judgment & insight - Labs CBC & Chem 7: 12/07/20 05:37 12/07/20 05:37 Labs: Abnormal Lab Results - Last 24 Hours (Table) 12/07/20 12/07/20 Range/Units 05:37 05:37 Lymphocytes # 0.2 L (1.0-4.8) k/uL Creatinine 0.5 L (0.6-1.5) mg/dL BUN/Creatinine Ratio 34.00 H (12.00-20.00) Ratio Calcium 7.4 L (8.7-10.3) mg/dL Total Bilirubin 0.2 L (0.3-1.2) mg/dL AST 39 H (13-35) U/L Total Protein 4.0 L (6.2-8.2) g/dL Albumin 2.60 L (3.80-4.90) g/dL Globulin 1.4 L (1.6-3.3) g/dL Assessment and Plan Assessment: Recurrent bilateral pleural effusion due to metastatic stage IV breast cancer status post bilateral Pleurx catheter placement Malignant bilateral pleural effusion Metastatic breast cancer stage IV Protein calorie malnourishment mild to moderate severity Ongoing shortness of breath Acute on chronic hypoxic respiratory failure due to advanced breast cancer and malignant pleural effusion Plan: Continue weekly chemotherapy as planned Continue supplemental oxygen, Continue drainage from bilateral Pleurx catheter as tolerated Time with Patient: Greater than 30
--- NOTE | 2020-12-07 13:31 | P.PN ---
Subjective Progress Note Date: 12/07/20 CHIEF COMPLAINT: Shortness of breath HISTORY OF PRESENT ILLNESS: Patient has a known history of metastatic breast cancer. She has recurrent malignant pleural effusions due to her breast cancer. She is status post bilateral Pleurx catheter placement. She does report improvement in her shortness of breath. She had declined a swallow evaluation yesterday. Patient has also declined Dobbhoff placement. PHYSICAL EXAM: VITAL SIGNS: Reviewed. GENERAL: Well-developed in no acute distress. HEENT: No sclera icterus. Extraocular movements grossly intact. Moist buccal mucosa. Head is atraumatic, normocephalic. ABDOMEN: Soft. Nondistended. Nontender. NEUROLOGIC: Alert and oriented. Cranial nerves II through XII grossly intact. ASSESSMENT: 1. Severe protein calorie malnutrition 2. Metastatic breast cancer stage IV 3. Recurrent bilateral pleural effusions secondary to the metastatic breast cancer status post bilateral Pleurx catheter placement PLAN: -Continue supportive care -No intervention planned -Patient declines Dobbhoff tube insertion Physician Media Monitor note has been reviewed by physician. Signing provider agrees with the documented findings, assessment, and plan of care. Objective - Vital Signs Vital signs: Vital Signs Temp 97.5 F L 12/07/20 05:00 Pulse 98 12/07/20 12:23 Resp 18 12/07/20 05:00 BP 102/71 12/07/20 12:23 Pulse Ox 96 12/07/20 09:05 Intake & Output 12/06/20 12/07/20 12/07/20 18:59 06:59 18:59 Intake Total 850 200 Output Total 3005 650 Balance -2155 200 -650 Weight 43.998 kg Intake: IV 250 Intake, IV Titration 600 Amount Dextrose 5%-0.9% NaCl 1, 600 000 ml @ 50 mls/hr IV . Q20H [facility] Rx#:[id number] Oral 200 Output: Drainage 650 Left Chest 250 Right Chest 400 Pleural Fluid 3000 Estimated Blood Loss 5 Other: Voiding Method Toilet Toilet # Voids 2 - Labs CBC & Chem 7: 12/07/20 05:37 12/07/20 05:37 Labs: Abnormal Lab Results - Last 24 Hours (Table) 12/07/20 12/07/20 Range/Units 05:37 05:37 Lymphocytes # 0.2 L (1.0-4.8) k/uL Creatinine 0.5 L (0.6-1.5) mg/dL BUN/Creatinine Ratio 34.00 H (12.00-20.00) Ratio Calcium 7.4 L (8.7-10.3) mg/dL Total Bilirubin 0.2 L (0.3-1.2) mg/dL AST 39 H (13-35) U/L Total Protein 4.0 L (6.2-8.2) g/dL Albumin 2.60 L (3.80-4.90) g/dL Globulin 1.4 L (1.6-3.3) g/dL
--- NOTE | 2020-12-07 13:37 | P.PN ---
Subjective Progress Note Date: 12/07/20 Principal diagnosis: Progressive metastatic Cancer She is status post bilateral pleurex drains. She also received one dose of palliaitve chemotherapy with Taxol 80mg/m2. She will continue receive as outpatient weekly if is helping symptoms. During evaluation she is sitting up in wheel chair and able to speak. Sister assisted with draining from pleurex today and greater than 400cc removed on both sides. Her protein continues to trend down, along with calcium although corrected calcium ok (due to low albumin). Re- enforced increasing protein Objective - Vital Signs Vital signs: Vital Signs Temp 97.5 F L 12/07/20 05:00 Pulse 98 12/07/20 12:23 Resp 18 12/07/20 05:00 BP 102/71 12/07/20 12:23 Pulse Ox 96 12/07/20 09:05 Intake & Output 12/06/20 12/07/20 12/07/20 18:59 06:59 18:59 Intake Total 850 200 Output Total 3005 650 Balance -2155 200 -650 Weight 43.998 kg Intake: IV 250 Intake, IV Titration 600 Amount Dextrose 5%-0.9% NaCl 1, 600 000 ml @ 50 mls/hr IV . Q20H [facility] Rx#:[id number] Oral 200 Output: Drainage 650 Left Chest 250 Right Chest 400 Pleural Fluid 3000 Estimated Blood Loss 5 Other: Voiding Method Toilet Toilet # Voids 2 - Exam - Constitutional General appearance: cooperative, mild distress - EENT Eyes: dentition normal ENT: NA/AT - Neck Neck: lymphadenopathy - Respiratory Respiratory: bilateral: diminished (Increased effort) Bilateral Pleurex drains Dressing CDI - Cardiovascular Rhythm: regular leg Peripheral Edema: bilateral: Trace - Gastrointestinal General gastrointestinal: soft - Integumentary Integumentary: pale - Neurologic non-focal - Musculoskeletal Musculoskeletal: generalized weakness, strength equal bilaterally - Psychiatric Psychiatric: A&O x's 3, appropriate affect - Labs CBC & Chem 7: 12/07/20 05:37 12/07/20 05:37 Labs: Abnormal Lab Results - Last 24 Hours (Table) 12/07/20 12/07/20 Range/Units 05:37 05:37 Lymphocytes # 0.2 L (1.0-4.8) k/uL Creatinine 0.5 L (0.6-1.5) mg/dL BUN/Creatinine Ratio 34.00 H (12.00-20.00) Ratio Calcium 7.4 L (8.7-10.3) mg/dL Total Bilirubin 0.2 L (0.3-1.2) mg/dL AST 39 H (13-35) U/L Total Protein 4.0 L (6.2-8.2) g/dL Albumin 2.60 L (3.80-4.90) g/dL Globulin 1.4 L (1.6-3.3) g/dL Assessment and Plan (1) Malignant pleural effusion Current Visit: Yes Status: Acute Code(s): J91.0 - MALIGNANT PLEURAL EFFUSION SNOMED Code(s): 367417687 (2) Metastatic breast cancer Current Visit: Yes Status: Acute Code(s): C50.919 - MALIGNANT NEOPLASM OF UNSP SITE OF UNSPECIFIED FEMALE BREAST SNOMED Code(s): 395637037 Plan: Progressed Metastatic Breast Cancer: - Progressive cancer, with her primary symptoms being secondary to her cancer, option of low dose chemo for symotom control versus home with hospice. Both appropriate choices, patient and sister given benefits and risks of both scenarios. - Status Post first palliaitive Taxol 80mg/m2 will continue weekly as outpatient if it continues to help improve symptoms Recurrent Malignant Pleural effusion: - New Progression, although decreasing performance status and prior multiple lines of therapy - Status Post Bilateral Pleurex drains per CTS - Overall Prognosis is poor, patient and sister did discuss in detail with Dr. Mccormick, if performance status improves and can control symptoms maybe able to consider targeted or immune therapy, although at this time will need to increase strength and obtain pleurex prior. Dysphagia: - Believe this is secondary to compression from cancer growth, she refuses dophoff and swallow evaluation at this time, they are fully aware of their risks and aspiration risk - COnsidering our overall treatment goal is palliative and overall outcome is poor patient and sister would like to focus on the goal of comfort and agree to monitor closely for any signs of aspiration with food (sister remains at bedside, she is a nurse practitioner) Marin-plastic Related Pain: - We will also add norco on and Lidocaine patch as she is very hesistant to utilize the morphine given her increased difficulty in breathinh Long discussion regarding Hospice and overall poor prognosis, patient and sister understand. They would like to try a dose of inpatient chemo to attempt to control symptoms and improve quality of life, this is resonable along with pleurex. We will plan to send home with Palliative care. - She will need hospital bed due to comfort from pleurex bilateral drains and decreased performance. HOB to be at 40 degress for concern of aspiration and increased ease of breathing - Also will require home oxygen for comfort and labile oxygenation levels with recurrent maliganant pleural effusions and progressive disease - Hospice care will be available at a low threshold if needed to convert from pallaitive.
--- NOTE | 2020-12-07 15:09 | CDI ---
Documentation Clarification Form Date: 12/07/2020 02:41:38 PM From: Tabitha Cai RN, CCDS Admit Date: 12/02/2020 06:31:00 PM Patient Name: Isabel Diaz Visit Number: [id number] Discharge Date: ATTENTION: The Clinical Documentation Specialists (CDI) and [facility] Coding Staff appreciate your assistance in clarifying documentation. Please respond to the clarification below the line at the bottom and electronically sign. The CDI & [facility] Coding staff will review the response and follow-up if needed. Please note: Queries are made part of the Legal Health Record. If you have any questions, please contact the author of this message via ITS. Dr. Castillo Burks Malnutrition has been documented in progress notes as mild to moderate severity. Surgery progress note on 12/07 has severe protein calorie malnutrition Please render your opinion on the most appropriate diagnosis for this patient condition. History/Risk Factors: Breast CA with mets to the brain, bone and lungs. Clinical Indicators: 70-year-old female with recurrent malignant pleural effusion secondary to her metastatic breast cancer. She present to ED with shortness of breath. Her general appearance is noted as cachectic. She has refused swallow evaluation. Her voice is gone. She is reporting only eating soft foods because she has nodes in her throat. 12/04 Labs: Na 140, bun 31, Cr 0.70 Current BMI: 19.6 Insufficient energy intake: Yes, Difficulty swallowing, poor nutrition intake Weight Loss: Report weight loss since April 2020; underweight, malnutrition Loss of subcutaneous fat: mild clavical muscle wasting Treatment: Dietary Consult: Yes Supplements: Ensure Clear TID Monitor I/O In your professional opinion, can you please clarify the most appreciate diagnosis for the patient condition? Mild Protein-Calorie Malnutrition Moderate Protein-Calorie Malnutrition Severe Protein-Calorie Malnutrition Other condition, please specify Unable to determine (Last Revision: May 2019) MTDD
[2020-12-08] MEDS: DEXTROSE 5%-0.9% NACL 1,000 ML IV SCH (06:02)
[2020-12-08 06:23] VITALS: RESP 16
[2020-12-08] MEDS: LIDOCAINE 5% PATCH TOPICAL SCH (11:33)
[2020-12-08 11:48] VITALS: BP 101/69; PULSE 94; TEMP 97.4
--- NOTE | 2020-12-08 13:31 | P.PN ---
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 Ongoing shortness of breath 12/08/2020, patient seen eval examined respiratory status remains unchanged patient remains on supplemental oxygen, respiratory status stable, 12/07/2020, patient seen eval examined labs reviewed medications reviewed sitting upright on the chair nodding off, on 2 L oxygen, mild shortness of breath is present, patient is currently undergoing chemotherapy, sister is present at bedside, patient had the Pleurx evacuation 400 from the right side and 250 from the left side, tolerated well 12/06/2020, patient seen eval examined during the rounds labs reviewed medications reviewed care plan discussed, patient is for bilateral Pleurx catheter placement later on today by cardiothoracic surgery 12/05/2020, patient seen eval examined during the rounds short of breath on 2 L nasal cannula, patient had the right-sided thoracentesis is 1.3 L of fluid has been removed, patient is scheduled for bilateral Pleurx catheter placement tomorrow by cardiothoracic surgery, care plan discussed with sister and patient at length This is a 70-year-old female seen eval reexamined on fourth fifth floor oncology unit, patient came into the hospital with progressive shortness of breath, patient had the thoracentesis on the right side as well as the left side on and 22 of November 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, patient has a history of the metastatic stage IV breast cancer diagnosed about 12 years ago, patient has been on chemotherapy in the past was stopped as has been nonresponding, patient has a progressive pleural effusion bilaterally which was tapped recently came back positive for cancer, due to recurrence of problem and hypoxia came into the hospital, he denies any chest pain denies any cough or sputum production denies any night sweat chills of fever Objective - Vital Signs Vital signs: Vital Signs Temp 97.4 F L 12/08/20 11:32 Pulse 94 12/08/20 11:32 Resp 16 12/08/20 11:32 BP 101/69 12/08/20 11:32 Pulse Ox 100 12/08/20 11:32 Intake & Output 12/07/20 12/08/20 12/08/20 18:59 06:59 18:59 Intake Total 818 400 Output Total 650 650 Balance 168 -250 Intake: Intake, IV Titration 818 400 Amount Dextrose 5%-0.9% NaCl 1, 550 400 000 ml @ 50 mls/hr IV . Q20H [facility] Rx#:[id number] PACLitaxeL 108 mg In 268 Sodium Chloride 0.9% 250 ml @ 268 mls/hr IV ONCE@ 1200 ONE Rx#:[id number] Output: Drainage 650 650 Left Chest 250 250 Right Chest 400 400 Other: Voiding Method Toilet # Voids 2 2 - Exam - Constitutional General appearance: average body habitus, cooperative, disheveled, mild distress - EENT Eyes: PERRLA Ears: bilateral: normal - Neck Carotids: bilateral: upstroke normal Thyroid: bilateral: normal size - Respiratory Respiratory: bilateral: diminished (Dullness to percussion more so on the left side compared to right side) - Cardiovascular Rhythm: regular Heart sounds: normal: S1, S2 - Gastrointestinal General gastrointestinal: soft - Musculoskeletal Musculoskeletal: gait normal, generalized weakness, strength equal bilaterally - Psychiatric Psychiatric: A&O x's 3, appropriate affect, intact judgment & insight - Labs CBC & Chem 7: 12/07/20 05:37 12/07/20 05:37 Assessment and Plan Assessment: Recurrent bilateral pleural effusion due to metastatic stage IV breast cancer status post bilateral Pleurx catheter placement Malignant bilateral pleural effusion Metastatic breast cancer stage IV 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
--- NOTE | 2020-12-08 21:59 | P.PN ---
Subjective Progress Note Date: 12/08/20 Principal diagnosis: Progressive metastatic Cancer Patient is feeling better, tolerating food, up in chair and eager to go home. We discussed plan for palliaitive care and goals of quality of life. She will also follow-up with Dr. Carey regarding monitoring of her Brain. Objective - Vital Signs Vital signs: Vital Signs Temp 97.4 F L 12/08/20 11:32 Pulse 94 12/08/20 11:32 Resp 16 12/08/20 11:32 BP 101/69 12/08/20 11:32 Pulse Ox 100 12/08/20 11:32 Intake & Output 12/08/20 12/08/20 12/09/20 06:59 18:59 06:59 Intake Total 400 Output Total 650 Balance -250 Intake: Intake, IV Titration 400 Amount Dextrose 5%-0.9% NaCl 1, 400 000 ml @ 50 mls/hr IV . Q20H [facility] Rx#:[id number] Output: Drainage 650 Left Chest 250 Right Chest 400 Other: Voiding Method Toilet # Voids 2 - Exam - Constitutional General appearance: cooperative, mild distress - EENT Eyes: dentition normal ENT: NA/AT - Neck Neck: lymphadenopathy - Respiratory Respiratory: bilateral: diminished (Increased effort) Bilateral Pleurex drains Dressing CDI - Cardiovascular Rhythm: regular leg Peripheral Edema: bilateral: Trace - Gastrointestinal General gastrointestinal: soft - Integumentary Integumentary: pale - Neurologic non-focal - Musculoskeletal Musculoskeletal: generalized weakness, strength equal bilaterally - Psychiatric Psychiatric: A&O x's 3, appropriate affect - Labs CBC & Chem 7: 12/07/20 05:37 12/07/20 05:37 Assessment and Plan (1) Malignant pleural effusion Status: Acute Code(s): J91.0 - MALIGNANT PLEURAL EFFUSION SNOMED Code(s): 555820721 (2) Metastatic breast cancer Status: Acute Code(s): C50.919 - MALIGNANT NEOPLASM OF UNSP SITE OF UNSPECIFIED FEMALE BREAST SNOMED Code(s): 775425801 Plan: Progressed Metastatic Breast Cancer: - Progressive cancer, with her primary symptoms being secondary to her cancer, option of low dose chemo for symotom control versus home with hospice. Both appropriate choices, patient and sister given benefits and risks of both scenarios. - Status Post first palliaitive Taxol 80mg/m2 will continue weekly as outpatient if it continues to help improve symptoms Recurrent Malignant Pleural effusion: - New Progression, although decreasing performance status and prior multiple lines of therapy - Status Post Bilateral Pleurex drains per CTS - Overall Prognosis is poor, patient and sister did discuss in detail with Dr. Mccormick, if performance status improves and can control symptoms maybe able to consider targeted or immune therapy, although at this time will need to increase strength and obtain pleurex prior. Dysphagia: - Believe this is secondary to compression from cancer growth, she refuses dophoff and swallow evaluation at this time, they are fully aware of their risks and aspiration risk - COnsidering our overall treatment goal is palliative and overall outcome is poor patient and sister would like to focus on the goal of comfort and agree to monitor closely for any signs of aspiration with food (sister remains at bedside, she is a nurse practitioner) Marin-plastic Related Pain: - We will also add norco on and Lidocaine patch as she is very hesistant to utilize the morphine given her increased difficulty in breathinh Long discussion regarding Hospice and overall poor prognosis, patient and sister understand. They would like to try a dose of inpatient chemo to attempt to control symptoms and improve quality of life, this is resonable along with pleurex. We will plan to send home with Palliative care. - She will need hospital bed due to comfort from pleurex bilateral drains and decreased performance. HOB to be at 40 degress for concern of aspiration and increased ease of breathing - Also will require home oxygen for comfort and labile oxygenation levels with recurrent maliganant pleural effusions and progressive disease - Hospice care will be available at a low threshold if needed to convert from pallaitive. Discharge today with palliaitive care, all patient ans sisters questions answered, cordination for home and appointment follow-ups and treatment made and discussed.
--- NOTE | 2020-12-10 08:43 | CDI ---
Documentation Clarification Form Date: 12/07/2020 02:41:38 PM From: Tabitha Cai RN, CCDS Admit Date: 12/02/2020 06:31:00 PM Patient Name: Isabel Diaz Visit Number: [id number] Discharge Date: ATTENTION: The Clinical Documentation Specialists (CDI) and [facility] Coding Staff appreciate your assistance in clarifying documentation. Please respond to the clarification below the line at the bottom and electronically sign. The CDI & [facility] Coding staff will review the response and follow-up if needed. Please note: Queries are made part of the Legal Health Record. If you have any questions, please contact the author of this message via ITS. Dr. Castillo Burks Malnutrition has been documented in progress notes as mild to moderate severity. Surgery progress note on 12/07 has severe protein calorie malnutrition Please render your opinion on the most appropriate diagnosis for this patient condition. History/Risk Factors: Breast CA with mets to the brain, bone and lungs. Clinical Indicators: 70-year-old female with recurrent malignant pleural effusion secondary to her metastatic breast cancer. She present to ED with shortness of breath. Her general appearance is noted as cachectic. She has refused swallow evaluation. Her voice is gone. She is reporting only eating soft foods because she has nodes in her throat. 12/04 Labs: Na 140, bun 31, Cr 0.70 Current BMI: 19.6 Insufficient energy intake: Yes, Difficulty swallowing, poor nutrition intake Weight Loss: Report weight loss since April 2020; underweight, malnutrition Loss of subcutaneous fat: mild clavical muscle wasting Treatment: Dietary Consult: Yes Supplements: Ensure Clear TID Monitor I/O In your professional opinion, can you please clarify the most appreciate diagnosis for the patient condition? Mild Protein-Calorie Malnutrition Moderate Protein-Calorie Malnutrition Severe Protein-Calorie Malnutrition Other condition, please specify Unable to determine (Last Revision: May 2019) MTDD
--- NOTE | 2020-12-13 09:26 | CDI ---
Documentation Clarification Form Date: 12/07/2020 02:41:00 PM From: Tabitha Cai RN, CCDS Admit Date: 12/02/2020 06:31:00 PM Patient Name: Isabel Diaz Visit Number: [id number] Discharge Date: 12/08/2020 01:39:00 PM ATTENTION: The Clinical Documentation Specialists (CDI) and [facility] Coding Staff appreciate your assistance in clarifying documentation. Please respond to the clarification below the line at the bottom and electronically sign. The CDI & [facility] Coding staff will review the response and follow-up if needed. Please note: Queries are made part of the Legal Health Record. If you have any questions, please contact the author of this message via ITS. Dr. Castillo Burks Conflicting documentation for malnutrition has been found in progress notes as mild to moderate severity. Surgery progress note on 12/07 has severe protein calorie malnutrition Please render your opinion on the most appropriate diagnosis for this patient condition. History/Risk Factors: Breast CA with mets to the brain, bone and lungs. Clinical Indicators: 70-year-old female with recurrent malignant pleural effusion secondary to her metastatic breast cancer. She present to ED with shortness of breath. Her general appearance is noted as cachectic. She has refused swallow evaluation. Her voice is gone. She is reporting only eating soft foods because she has nodes in her throat. 12/04 Labs: Na 140, bun 31, Cr 0.70 Current BMI: 19.6 Insufficient energy intake: Yes, Difficulty swallowing, poor nutrition intake Weight Loss: Report weight loss since April 2020; underweight, malnutrition Loss of subcutaneous fat: mild clavical muscle wasting Treatment: Dietary Consult: Yes Supplements: Ensure Clear TID Monitor I/O In your professional opinion, can you please clarify the most appreciate diagnosis for the conditions: Mild Protein-Calorie Malnutrition Moderate Protein-Calorie Malnutrition Severe Protein-Calorie Malnutrition Other condition, please specify Unable to determine (Last Revision: May 2019) MTDD
--- NOTE | 2020-12-13 18:04 | PN ---
PROGRESS NOTE Mild protein calorie malnutrition. MMODL / IJN: [id number] /
--- NOTE | 2020-12-14 18:57 | PN ---
PROGRESS NOTE ADDENDUM: Severe protein-calorie malnutrition. MMODL / IJN: [id number] /
== END 2020-12-08 13:39 | disposition home health service (06) | DRG 597 ==
LOC: EC 16:27 → 5NMEDONC 18:31
PROVIDERS: ADMIT Family Medicine; ATTEND Family Medicine
PROC: 0W993ZZ Drainage of Right Pleural Cavity, Percutaneous Approach (ICD-10-PCS; principal; 2020-12-03)
PROC: 0W9B30Z Drainage of Left Pleural Cavity with Drainage Device, Percutaneous Approach (ICD-10-PCS; 2020-12-06)
PROC: 0W9930Z Drainage of Right Pleural Cavity with Drainage Device, Percutaneous Approach (ICD-10-PCS; 2020-12-06)
DX: C50.912 Malignant neoplasm of unspecified site of left female breast (principal); J96.21 Acute and chronic respiratory failure with hypoxia; E43 Unspecified severe protein-calorie malnutrition; C79.31 Secondary malignant neoplasm of brain; C79.51 Secondary malignant neoplasm of bone; J91.0 Malignant pleural effusion; C34.92 Malignant neoplasm of unspecified part of left bronchus or lung; Z68.1 Body mass index [BMI] 19.9 or less, adult; C50.911 Malignant neoplasm of unspecified site of right female breast; Z66 Do not resuscitate; Z51.5 Encounter for palliative care; Z98.890 Other specified postprocedural states; Z17.0 Estrogen receptor positive status [ER+]
CPT/HCPCS: 32555; 36415; 71045; 71046; 80053; 83735; 83880; 84484; 85025; 85610; 85730; 93005; 99285

== ENCOUNTER → 2020-12-22 | Day surgery (SDC) | payer MEDICARE ==
[2020-12-20 09:23] VITALS: BMI 19.0
[~2020-12-22] MED LIST: IOPAMIDOL-370 50ML BTL INJ ONE; LIDOCAINE 1% INJ 10MG/ML (20 ML MDV) ONE; LIDOCAINE 1% INJ 10MG/ML (20 ML MDV) SQ ONE
[2020-12-22 11:09] VITALS: TEMP 96.8
--- NOTE | 2020-12-22 12:13 | IR ---
PICC LINE PLACEMENT: HISTORY: Infection requiring long-term antibiotic therapy PROCEDURE: Ultrasound and fluoroscopic guidance of PICC line placement. COMPLICATIONS: None ANESTHESIA: 1. 1% Lidocaine locally. FINDINGS/TECHNIQUE: The procedure was explained to the patient. The risks, complications, benefits and alternatives were discussed and any questions were answered. Informed consent was obtained. The patient was placed supine on the fluoroscopic table and prepped and draped in the usual sterile fas ion. Utilizing a 21 gauge needle and sonographic and fluoroscopic guidance, access in the vein was achieved and there is placement of a 0.018 guidewire. The vein is patent. A 4-F sheath was placed o mike the guidewire. The guidewire and dilator were removed and a 4-F. PICC line was placed through th e sheath with the tip at the level of the SVC. The sheath was removed, the catheter was flushed and sutured into position. The patient was stable throughout the procedure and remained stable upon disc harge from the Department of Radiology. The vein puncture was patent under ultrasound. A marcos scale image was obtained to document patency of the vein punctured. All elements of the maximal barrier technique were utilized. FLUOROSCOPY TIME: 0.3 minutes and one image submitted. IMPRESSION: Successful PICC line placement under ultrasound and fluoroscopic guidance.
[2020-12-22 12:36] VITALS: BP 94/64; PULSE 89; RESP 16
== END ==
LOC: CATHCVL 10:25
PROVIDERS: ATTEND Radiology Diagnostic Radiology
DX: C50.812 Malignant neoplasm of overlapping sites of left female breast (principal); D61.818 Other pancytopenia; Z17.0 Estrogen receptor positive status [ER+]; C79.31 Secondary malignant neoplasm of brain; C79.51 Secondary malignant neoplasm of bone; Z79.899 Other long term (current) drug therapy; Z98.890 Other specified postprocedural states; Z86.19 Personal history of other infectious and parasitic diseases
CPT/HCPCS: 36573; C1751; C1769; J2001; Q9967

== ENCOUNTER → 2021-02-02 | Outpatient (CLI) | payer MEDICARE ==
--- NOTE | 2021-02-02 14:22 | MR ---
EXAMINATION TYPE: MR brain wo/w con DATE OF EXAM: 02/02/2021 2:00 PM COMPARISON: NONE HISTORY: Cancer history, Brain, Breast, Bone and Lung. Follow up study. Post radiation CONTRAST: Patient received 4.5 mL intravenous Gadavist gadolinium contrast. Multiplanar and multispin-echo imaging of the brain was performed . Pre and post contrast enhanced i mages are obtained. The ventricles, basal cisterns and sulci overlying the cerebral convexities are mildly enlarged. There is evidence of moderate confluent periventricular white matter ischemic demyelination. Remote deep white matter insults are also noted. No acute edema is seen on diffusion weighted imaging. There is no evidence for midline shift or mass effect. Acute intracranial hemorrhage or extra-axial collection is not evident. Following the administration of contrast there are new innumerable small solid and ring-enhancing les ions throughout the cerebellum the largest measuring 6 mm. 2 mm lesion is seen within the inez on the left. 2 mm left midbrain lesion is also noted. Approximately 2-4 lesions are seen within both cerebr al hemispheres, measuring less than 3 mm. There is also evidence of dural enhancement. The paranasal sinuses and mastoid air cells are well-aerated. IMPRESSION: 1. Progressive metastatic disease particularly to the cerebellum. 2. Small scattered lesions within both cerebral hemispheres. 4. Dural enhancement.
== END | disposition home or self-care (01) ==
LOC: RADMRIMAIN 12:11
PROVIDERS: ATTEND Radiology Radiation Oncology
DX: C79.31 Secondary malignant neoplasm of brain (principal); C79.51 Secondary malignant neoplasm of bone; C50.311 Malignant neoplasm of lower-inner quadrant of right female breast; C50.412 Malignant neoplasm of upper-outer quadrant of left female breast; G93.89 Other specified disorders of brain; R90.89 Other abnormal findings on diagnostic imaging of central nervous system; Z92.3 Personal history of irradiation
CPT/HCPCS: 70553; A9585

== ENCOUNTER → 2021-02-16 | Outpatient (CLI) | payer MEDICARE ==
[2021-02-16 11:06] LABS: African American GFR (CKD) >90 (>60 ml/min/1.73 sqM); Blood Urea Nitrogen 23 mg/dL (7-17); Non-African American GFR(CKD) 84 (>60 ml/min/1.73 sqM)
--- NOTE | 2021-02-16 15:02 | CT ---
EXAMINATION TYPE: CT ChestAbdPelvis w con DATE OF EXAM: 02/16/2021 INDICATION: follow up to breast CA with mets COMPARISON: 10/20/2020 CT DLP: 469 mGycm CONTRAST: Performed with Oral Contrast and with IV Contrast, patient injected with 100 mL of Isovue 300. TECHNIQUE: Axial images at 5 mm thick sections. Reconstructed images in the coronal plane. Delayed images through the kidneys. FINDINGS: CT CHEST: Right catheter is present at the right lung. Left lung drainage catheter is also present. Thyroid is markedly enlarged and heterogenous measuring 5.2 x 6.0 cm. Workup for thyroid cancer is re commended. This is an interval change. Small pleural effusions are present. There is some nodularity within the posterior right pleural effu janelle. The largest nodule measures 1.8 cm. Additional pleural-based nodule may be present posteriorly at this level. Neoplasm should be considered There is a 1.2 cm nodular density in the pretracheal space compatible with an enlarged lymph node. The ascending aorta diameter at the level of the main pulmonary artery is 3.2 cm. The main pulmonary artery diameter at the bifurcation is 2.[address] ABDOMEN: Liver: There is a hypodensity measuring 2.3 cm and 59 Hounsfield units. There is a 3.2 cm hypodensity with ill-defined margins in the anterior right lobe liver may be a metastatic lesion. There is an il l-defined hypodensity anterior to the gallbladder measuring 1.5 cm may be additional hepatic metastas is. Spleen: Normal Pancreas: Normal Adrenal glands: The adrenal glands are normal. Gallbladder: Normal Kidneys: No masses are evident. Some left hydronephrosis may be present. Some left hydroureter appear s to be present. There is a 0.5 cm proximal left ureteral calcification. Additional nonobstructing po sterior mid left kidney renal stone measuring 0.9 cm is present. Cortical renal cysts present bilater ally. Delayed images were obtained through the kidneys, which remain unremarkable. Aorta: Vascular calcification is within the aorta. Inferior vena cava: Normal. CT PELVIS: Loops of bowel within the abdomen and pelvis are normal. There are loops of bowel which are incom pletely distended or lack oral contrast limiting their evaluation. Appendix: Normal as visualized. Urinary bladder: Normal. Genitourinary structures: Uterus appears unremarkable. Adnexal regions are clear. Osseous structures: There is increased density through the right pubic ramus can be compatible with s clerotic metastasis. Sclerotic lesion adjacent to the left sacroiliac joint measuring 1.0 cm. Series 3 image 80 some sclerosis measuring 1.0 cm in the posterior superior L4 levels present. There is diff use increased density within the L3 and L1 vertebral bodies. This extends into the right L1 pedicle a nd the left L3 pedicle. There is increased signal within T8 compatible with metastatic disease T7 and T5 uptake is present suspicious for additional metastasis. Some posterior metastasis at T3 may prese nt. IMPRESSIONS: 1. Multiple osseous metastasis. 2. Suspected metastasis within the liver. These are increasing in size over the interval 3. Bilateral pleural effusions. There appear to be nodules in the posterior right lung base within th e fluid. 4. Enlarged mediastinal lymph node which is new. 5. Enlarged heterogenous thyroid. Correlate for neoplasm. This is a new interval change. 6. Obstructi ng mid left ureteral stone with mild left hydronephrosis
== END | disposition home or self-care (01) ==
LOC: RADCTMAIN 10:21
PROVIDERS: ATTEND Internal Medicine Hematology & Oncology
DX: C50.919 Malignant neoplasm of unspecified site of unspecified female breast (principal); C79.51 Secondary malignant neoplasm of bone; J90 Pleural effusion, not elsewhere classified; N13.2 Hydronephrosis with renal and ureteral calculous obstruction
CPT/HCPCS: 82565; 84520; 71260; 74177; Q9967

== ENCOUNTER → 2021-02-16 | Outpatient (CLI) | payer MEDICARE ==
--- NOTE | 2021-02-16 13:00 | US ---
EXAMINATION TYPE: US venous doppler duplex UE RT DATE OF EXAM: 02/16/2021 COMPARISON: NONE CLINICAL HISTORY: R22.31 Swelling of upper right limb. PICC in right Basilic Vein at brachial fossa. Intermittent, primarily right forearm swelling; On chemotherapy. SIDE PERFORMED: right Right Arm: Wall echoes are noted on anterior wall in right Subclavian Vein for short segment suggesti ve of non occluding DVT. Non occluding, thready flow seen in Right Basilic Vein suggestive of Non Occ luding Superficial Vein Thrombosis just distal to axillary junction to brachial fossa . PICC is noted in right Basilic Vein. IMPRESSION: Short segment nonoccluding DVT.
== END | disposition home or self-care (01) ==
LOC: RADUSWWP 11:58
PROVIDERS: ATTEND Internal Medicine Hematology & Oncology
DX: R22.31 Localized swelling, mass and lump, right upper limb (principal)